=== PATIENT | male | born 1955 | race Caucasian/White ===

== ENCOUNTER 2019-03-24 15:33 | Emergency (ER) | payer OTHER, SELFPAY ==
[2019-03-24 15:33] VITALS: BP 147/85; PULSE 102; RESP 16; TEMP 36.6; O2SAT 98; BMI 28.0
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
--- NOTE | 2019-03-24 19:20 | RAD_ITS ---
STUDY: X-RAY - LEFT HAND REASON FOR EXAM: Male, 63 years old. Post reduction TECHNIQUE: 2 view(s) of the hand. COMPARISON: X-Ray Hand earlier the same day FINDINGS: There has been interval reduction of the fifth metacarpal fracture. There is improved alignment with mild displacement present. No foreign body is present. Cast material limits detail. RAD/Hand 2 Views IMPRESSION: Interval reduction of fifth metacarpal fracture. Electronically Signed: Taye Alan, at 19:52 EDT Tel , Service support ,
[2019-03-24 19:41] VITALS: RESP 16
== END 2019-03-24 19:42 | disposition home or self-care (01) ==
PROVIDERS: Emergency Provider Emergency Medicine
DX: S62.307A Unspecified fracture of fifth metacarpal bone, left hand, initial encounter for closed fracture (principal); S80.12XA Contusion of left lower leg, initial encounter; S30.0XXA Contusion of lower back and pelvis, initial encounter; V29.40XA Motorcycle driver injured in collision with unspecified motor vehicles in traffic accident, initial encounter; Y93.9 Activity, unspecified; Y92.9 Unspecified place or not applicable
CPT/HCPCS: 26605; 73120; 73130; 73562; 99282

== ENCOUNTER 2019-03-30 08:01 | Day surgery (SDC) | payer OTHER, SELFPAY ==
[2019-03-30] VITALS (8 sets, daily range): BP systolic 65–142; BP diastolic 54–90; PULSE 42–81; RESP 16; TEMP 36.1–36.8; O2SAT 95–100; BMI 27.3
[2019-03-30] MEDS: Cefazolin 2 GM in 0.9% Normal Saline 100 ML IV (09:52)
--- NOTE | 2019-03-30 10:00 | RAD_ITS ---
STUDY: X-RAY - LEFT HAND REASON FOR EXAM: Male, 63 years old. Fracture TECHNIQUE: 2 spot view(s) of the hand. Fluoroscopy utilized for 53.2 seconds. COMPARISON: March 24, 2019 FINDINGS: Intraoperative fluoroscopy utilized during placement of pins of fifth metacarpal fracture. RAD/Hand 2 Views IMPRESSION: Intraoperative fluoroscopy. Electronically Signed: Tristan Gonzalez MD at 19:32 EDT , Service support ,
--- NOTE | 2019-03-30 11:00 | PCM.OPRPT ---
Report of Operation Date of Procedure: 03/30/19 Pre-Operative Diagnosis: Displaced malrotated fifth metacarpal neck fracture Post-Operative Diagnosis: Displaced malrotated fifth metacarpal neck fracture Surgery/Procedure Performed:: Closed reduction percutaneous pinning fifth metacarpal fracture neck Description of Surgical Findings:: 2 62 K wires were placed. Stable reduction. research assistant member: None Type of Anesthesia:: General Anesthesiologist: Azael Francis Special Medications: 2 g Ancef Estimated Blood Loss (mL): 3 Fluids Replaced: 700 mL crystalloid Description of Procedure: On the day of the procedure patient's left hand was marked in the preoperative area. Patient was taken back to the operating room where he was transferred to the table in the supine position. Anesthesia assumed control C-spine airway and remained controlled throughout the remainder the procedure. All bony prominences were identified well-padded. Tourniquet was placed in the left upper extremity. Left upper extremity was then prepped in sterile fashion with surgeon scrubbed. Upon reentering the room the left upper chimney was draped in a standard repeat fashion. Timeout was called 1. On the side, site, the procedure to be performed, patient identity and antibiotic given. After the timeout was called one 6.2 K wire was loaded up. We manipulated the hand with traction and internal rotation to help correct the malrotation. Under live x-ray we could see that we were able to reduce the fracture further. The initial K wire was placed quad cortically through the fifth and fourth metacarpals. We then made a small incision with 15 blade scalpel and placed a second K wire in a divergent fashion again quad cortically. Live x-ray was used to verify final fracture reduction and placement of pins. Once we are happy with this the wound was irrigated. Xeroform dressing was placed. Well-padded ulnar gutter splint was placed. Patient was awakened by anesthesia and transferred to the PACU for recovery. Postoperative plan: Patient will have splint removed in 2 weeks and check the wound. He can start pin care at that time and range of motion of his digits. At 4 weeks we will remove the pins. He will be nonweightbearing for a total of 6 weeks. Grafts/Implants Used: two K wires - Complications No intraoperative complications - Admit VTE Documentation VTE Present on Admission: No VTE Mechan Device Prophylaxis: SCD's VTE Pharm Prophylaxis ordered?: No Reason prophylaxis not ordered:: Treatment Not Indicated
== END 2019-03-30 12:30 | disposition home or self-care (01) ==
LOC: SDC 08:02 → AC 08:08
PROVIDERS: Referring Provider Specialist; Visit Provider Specialist
PROC: (CPT 26608; principal; 2019-03-30 10:00)
DX: S62.337A Displaced fracture of neck of fifth metacarpal bone, left hand, initial encounter for closed fracture (principal); V29.60XA Unspecified motorcycle rider injured in collision with unspecified motor vehicles in traffic accident, initial encounter; Y93.9 Activity, unspecified; Y92.9 Unspecified place or not applicable; E78.00 Pure hypercholesterolemia, unspecified; E66.3 Overweight; Z68.27 Body mass index [BMI] 27.0-27.9, adult; Z87.891 Personal history of nicotine dependence
CPT/HCPCS: 26608; 73120; 76000; C1713; J7120; J2405

== ENCOUNTER 2022-07-31 01:45 | Inpatient (IN) | payer MEDICARE, OTHER, SELFPAY ==
[2022-07-31] VITALS (32 sets, daily range): BP systolic 76–130; BP diastolic 53–82; PULSE 49–82; RESP 14–20; TEMP 36.2–36.9; O2SAT 89–99; BMI 27.4
--- NOTE | 2022-07-31 01:45 | RAD_ITS ---
STUDY: X-RAY CHEST REASON FOR EXAM: Male, 66 years old. CP, STEMI TECHNIQUE: 55. COMPARISON: None. FINDINGS: No focal infiltrates or effusions. No pneumothorax. business account specialist overlies the upper chest in the midline. Normal size heart. Normal mediastinum and madai. Normal visualized pulmonary arteries. Normal visualized aortic arch and descending thoracic aorta. Normal visualized thoracic spine. Normal visualized ribs, clavicles, and shoulders. There is no demonstrated abnormality of the visualized soft tissue structures of the upper abdomen. RAD/Chest 1 View (Portable) IMPRESSION: No acute cardiopulmonary disease. Electronically Signed: Shaji Banuelos MD at 2:46 EDT Reading Location ID and State: [id number] / , Service support ,
--- NOTE | 2022-07-31 03:43 | PCM.CONS.C ---
Assessment & Plan Assessment/Plan (1) STEMI (ST elevation myocardial infarction): PLAN: Emergent coronary angiography with possible revascularization was recommended. After obtaining informed consent, procedure was undertaken. 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 Successful aspiration thrombectomy followed by drug-eluting stent was performed using or serial 4.0 x 26 mm stent. This was postdilated using a 4.5 mm balloon. Excellent results were noted. Continue aspirin lifelong. Clopidogrel treatment for at least 1 year. Start on statins. Low-dose beta-blockers. (2) Shock, cardiogenic: PLAN: Requiring low-dose dopamine. Wean off as tolerated. LVEF estimated to be around 50 to 55%. HPI Consult Data Date of Consult: 07/31/22 HPI Narrative HPI Narrative: Patient denies significant past medical history. He woke up from sleep early this morning with anterior chest discomfort radiating to his neck. EMS was called. An EKG done in the field showed changes consistent with acute inferior myocardial infarction. Subsequently a STEMI alert was called. [facility] Allergy/AdvReac Type Severity Reaction Status Date / Time bee venom protein (honey bee) AdvReac Swelling Verified 03/30/19 08:24 Social History Smoking Status: Former smoker Physical Exam Narrative Comfortable. No apparent distress. Respirations unlabored. Heart rate regular rate and rhythm. Abdomen soft. Alert oriented x3. No ankle edema. Risk Stratification Risk Stratification Applicable: No Cardiology Labs/Tests Rhythm: EKG: ECHO: Stress Test: Cardiac Cath: PCI: CT Surgery: Holter monitor: EPS: PPM: CXR: Chest CT Scan: Radiography Diagnostic Testing: Radiology Impression Chest X-Ray 07/31/22 01:45 IMPRESSION: No acute cardiopulmonary disease. Electronically Signed: Shaji Banuelos MD at 2:46 EDT Reading Location ID and State: [id number] / , Service support ,
--- NOTE | 2022-07-31 03:45 | NURSING ---
Report received from cathlab RN Brice, pt was started on Dopamine to maintain BP and HR s/p PCI on order of .
--- NOTE | 2022-07-31 04:00 | NURSING ---
Pt arrived from cathlab, ST elevation remains present on telemetry in lead II, per cathlab RN Brice, is aware.
--- NOTE | 2022-07-31 04:10 | NURSING ---
Pt received w/dopamine at 2mcg/kg/min and Integrilin at 13.1ml/hr infusing together through [facility] PIV.
[2022-07-31 06:42] LABS: ALB/GLOB Ratio 1.1 RATIO (0.9-2.4); AST(SGOT) 181 U/L (15-37); Alanine Aminotransfer ALT/SGPT 106 U/L (16-61); Albumin, Serum 3.4 g/dL (3.2-5.0); Alkaline Phosphatase 44 U/L (45-117); Anion Gap 8 (5-15); BUN 25 mg/dL (7-18); BUN/Creat Ratio 22.7 RATIO (10-20); Bilirubin, Direct 0.08 mg/dL (0.00-0.30); Calcium,Total 8.3 mg/dL (8.5-10.1); Chloride 109 mmol/L (98-107); EST Glomerular Filtration Rate 71 mL/min (>60); Est Glom Filt Rate - Afr Amer 85 mL/min (>60); Estimated Creatinine Clearance 62.18 ml/min; Glucose 181 mg/dL (74-106); Magnesium 2.2 mg/dL (1.6-2.6); Phosphorus 3.4 mg/dL (2.5-4.9); Potassium 4.1 mmol/L (3.5-5.1); Protein, Total 6.4 g/dL (6.4-8.2); Sodium Level 140 mmol/L (136-145); Thyroid Stim Hormone (TSH) 1.06 uIU/mL (0.358-3.74)
[2022-07-31] MEDS: 0.9% Normal Saline 1,000 ML 150 ML IV (06:49)
[2022-07-31] MEDS: 0.9% NaCl Peripheral Flush Adult/Peds IV ×2 (06:51→21:12)
[2022-07-31 07:00] LABS: Cholesterol 287 mg/dL (200); High Density Lipoprotein 73 mg/dL; Triglycerides 68 mg/dL; Very Low Density Lipoprotein 14 mg/dL (5-40)
[2022-07-31 07:03] LABS: Absolute Lymphocyte Count 1.32 X10^3/uL (0.83-4.51); Absolute Neutrophil Count 8.8 X10^3/uL (2.0-7.7); Basophil# 0.03 X10^3/uL; Basophil% 0.3 % (0-1); Eosinophil# 0.04 X10^3/uL; Eosinophils% 0.4 % (0-5); Hematocrit 42.2 % (40-54); Hemoglobin 13.3 g/dL (13.0-16.5); Lymphocyte # 1.32 X10^3/ul (0.83-4.51); Lymphocyte % 12.4 % (19-41); Mean Corp Hgb Conc 31.5 g/dL (32-36); Mean Corpuscular Hgb 27.4 pg (27.0-32.0); Mean Corpuscular Volume 86.8 fL (80-94); Mean Platelet Vol. 9.9 fl (6.2-12.0); Monocyte# 0.47 X10^3/uL; Monocyte% 4.4 % (0-10); NRBC Flagged by Analyzer 0 % (0-5); Neutrophil # 8.77 X10^3/uL (2.7-7.7); Platelet Count 271 K/mm3 (150-450); RBC Distribution Width CV 15.1 % (11.6-14.6); RBC Distribution Width SD 48.1 fl (35.1-43.9); Red Blood Count 4.86 M/mm3 (4.6-6.2); White Blood Count 10.7 K/mm3 (4.4-11.0)
[2022-07-31 07:29] LABS: Partial Thromboplast Time 25.7 Seconds (24.1-36.2); Prothrombin Time (Protime)PT. 12.6 SECONDS (11.7-14.9)
[2022-07-31 07:32] LABS: Absolute Lymphocyte Count 2.76 X10^3/uL (0.83-4.51); Absolute Neutrophil Count 3.7 X10^3/uL (2.0-7.7); Basophil# 0.04 X10^3/uL; Basophil% 0.5 % (0-1); Eosinophil# 0.26 X10^3/uL; Eosinophils% 3.5 % (0-5); Hematocrit 46.1 % (40-54); Hemoglobin 14.3 g/dL (13.0-16.5); Lymphocyte # 2.76 X10^3/ul (0.83-4.51); Lymphocyte % 37.2 % (19-41); Mean Corpuscular Hgb 26.4 pg (27.0-32.0); Mean Corpuscular Volume 85.1 fL (80-94); Mean Platelet Vol. 9.6 fl (6.2-12.0); Monocyte# 0.59 X10^3/uL; NRBC Flagged by Analyzer 0 % (0-5); Neutrophil # 3.74 X10^3/uL (2.7-7.7); Neutrophil % 50.4 % (47-70); Platelet Count 274 K/mm3 (150-450); RBC Distribution Width CV 15.3 % (11.6-14.6); RBC Distribution Width SD 47.5 fl (35.1-43.9); Red Blood Count 5.42 M/mm3 (4.6-6.2); White Blood Count 7.4 K/mm3 (4.4-11.0)
--- NOTE | 2022-07-31 07:37 | PCM.PN.HOSP ---
Subjective Subjective DOS: 07/31/2022 CC: Nausea Reports feeling much better than he was but not quite ready to run a marathon though denies any chest pain or shortness of breath. Was nauseous for the last several hours but has now tolerated ice chips and medicine. Denies any other concerns at this time Objective Data Objective Data Vital Signs: Vital Signs Temp Pulse Resp BP Pulse Ox O2 Del Method O2 Flow Rate 97.2 F L 65 20 H 105/69 96 Nasal Cannula 2 07/31/22 04:00 07/31/22 07:00 07/31/22 07:00 07/31/22 07:00 07/31/22 07:00 07/31/22 07:00 07/31/22 07:00 Oxygen Flow Rate (L/min) 2 Oxygen Delivery Method Nasal Cannula Weight: 81.9 kg Body Mass Index (BMI) 27.4 Lab / Micro Data Result Diagrams: 07/31/22 05:35 07/31/22 05:35 Labs: Laboratory Results - last 24 hr 07/31/22 02:00: WBC 7.4, RBC 5.42, Hgb 14.3, Hct 46.1, MCV 85.1, MCH 26.4 L, MCHC 31.0 L, RDW Std Deviation 47.5 H, RDW Coeff of Kaur 15.3 H, Plt Count 274, MPV 9.6, Immature Gran % (Auto) 0.400, Neut % (Auto) 50.4, Lymph % (Auto) 37.2, Titus % (Auto) 8.0, Eos % (Auto) 3.5, Baso % (Auto) 0.5, Absolute Neuts (auto) 3.7, Absolute Lymphs (auto) 2.76, Nucleated RBC % 0 07/31/22 02:00: PT 12.6, INR 1.0, APTT 25.7 07/31/22 05:35: WBC 10.7, RBC 4.86, Hgb 13.3, Hct 42.2, MCV 86.8, MCH 27.4, MCHC 31.5 L, RDW Std Deviation 48.1 H, RDW Coeff of Kaur 15.1 H, Plt Count 271, MPV 9.9, Immature Gran % (Auto) 0.500, Neut % (Auto) 82.0 H, Lymph % (Auto) 12.4 L, Titus % (Auto) 4.4, Eos % (Auto) 0.4, Baso % (Auto) 0.3, Absolute Neuts (auto) 8.8 H, Absolute Lymphs (auto) 1.32, Nucleated RBC % 0 07/31/22 05:35: Sodium 140, Potassium 4.1, Chloride 109 H, Carbon Dioxide 23.0, Anion Gap 8, BUN 25 H, Creatinine 1.10, Estim Creat Clear Calc 62.18, Est GFR (MDRD) Af Amer 85, Est GFR (MDRD) Non-Af 71, BUN/Creatinine Ratio 22.7 H, Glucose 181 H, Calcium 8.3 L, Phosphorus 3.4, Magnesium 2.2, Total Bilirubin 0.30, Direct Bilirubin 0.08, AST 181 H, ALT 106 H, Alkaline Phosphatase 44 L, Total Protein 6.4, Albumin 3.4, Globulin 3.0, Albumin/Globulin Ratio 1.1, Triglycerides 68, Cholesterol 287 H, LDL Cholesterol 200 H, VLDL Cholesterol 14, HDL Cholesterol 73, TSH 1.06 Radiography Diagnostic Testing: Radiology Impression Chest X-Ray 07/31/22 01:45 IMPRESSION: No acute cardiopulmonary disease. Electronically Signed: Shaji Banuelos MD at 2:46 EDT Reading Location ID and State: [id number] / , Service support , Physical Exam Const alert and no apparent distress Constitutional Narrative: Oriented HEENT normocephalic and head/scalp atraumatic Eyes Eyes Narrative: EOM grossly intact, anicteric Neck supple Resp normal respiratory effort and clear to auscultation bilaterally Cardio regular rate and regular rhythm GI soft to palpation, non-tender and non-distended Extremity Extremity Narrative: No edema appreciated Neuro moves all extremities Neuro Narrative: No overt focal deficits appreciated Psych Psych Narrative: Cooperative Assessment & Plan Assessment/Plan (1) STEMI (ST elevation myocardial infarction): PLAN: Plan Mr. Landeros is a 66-year-old male with no notable past medical history who presented to the [facility] ED on 07/31/2022 with a STEMI. He had awoken with jaw pain and began to have chest pressure and heaviness. EMS was called and on arrival he was found to have an inferior STEMI. Was given 481 mg aspirins and a bolus of heparin prior to arrival. Was still having chest pain upon arrival and was taken emergently to [facility]. #ST elevation MT Admitted to ICU Taken to [facility] emergently?subtotal occlusion of RCA in its proximal part with RICKEY I flow. Successful aspiration thrombectomy followed by ROSARIO was performed with post dilation using balloon Has elevated LDL and cholesterol High intensity statin, aspirin Aspirin lifelong, clopidogrel for at least 1 year Cardiology following Additionally started on low-dose beta-bong and YUDITH inhibitor by cardiology #Elevated transaminases Likely secondary to low BP when he presented, will trend #DVT ppx: Ignacio Phelps MD Charges/Coding Visit Charges Inpatient E&M: 94881 Subs Hosp L2
[2022-07-31 07:42] LABS: BUN 23 mg/dL (7-18); BUN/Creat Ratio 18.1 RATIO (10-20); Calcium,Total 8.9 mg/dL (8.5-10.1); Creatinine, Serum 1.27 mg/dL (0.70-1.30); EST Glomerular Filtration Rate 60 mL/min (>60); Est Glom Filt Rate - Afr Amer 73 mL/min (>60); Estimated Creatinine Clearance 53.86 ml/min; Glucose 173 mg/dL (74-106)
[2022-07-31 07:43] LABS: Anion Gap 7 (5-15); Chloride 106 mmol/L (98-107); Potassium 3.6 mmol/L (3.5-5.1); Sodium Level 140 mmol/L (136-145); Troponin-I HS 17 pg/mL (3.0-78.0)
[2022-07-31 07:45] LABS: BNP,B-Type NATRIURETIC PEPTIDE 11.8 pg/mL (0-100)
--- NOTE | 2022-07-31 08:37 | ED.VIS.CHEST ---
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 He is a former smoker, has not seen a doctor in a long time, takes no medications. He had COVID a couple months ago and has had a chronic cough ever since. EMS sent a prehospital EKG showing a STEMI which was notified prehospital, and as a result they gave heparin 4000 units IV in addition to Brilinta 180 mg and aspirin 324 mg. PFSH PFSH no medical history Allergy/AdvReac Type Severity Reaction Status Date / Time bee venom protein (honey bee) AdvReac Swelling Verified 03/30/19 08:24 Social History Smoking Status: Former smoker ROS ROS ED Constitutional Constitutional ED: Reports malaise and sweats; Denies chills or fever(s) Eyes Eyes: Denies change in vision or diplopia ENT ENT ED: Denies rhinorrhea or sore throat Cardiovascular Cardiovascular: Reports as per HPI, chest pain and radiating jaw, neck or arm pain; Denies palpitations Respiratory/Chest Respiratory/Chest: Reports cough and dyspnea Gastrointestinal Gastrointestinal: Denies abdominal pain, diarrhea, nausea or vomiting Genitourinary Genitourinary ED: Denies dysuria or hematuria Musculoskeletal Musculoskeletal: Denies back pain or neck pain Integumentary Denies abscess or rash Neurologic Neurologic: Denies headache(s), paresthesias or weakness Psychiatric Psychiatric: Denies anxiety or suicidal thoughts EXAM Physical Exam Const Positive well nourished and well developed General Appearance ED: well developed and NAD HEENT Reports moist mucous membranes normocephalic and atraumatic Eyes PERRL and EOMs intact bilaterally Neck full ROM and supple Chest Wall inspection of chest normal and palpation of chest normal Resp normal respiratory effort and clear to auscultation bilaterally Effort and Inspection: able to speak in complete sentences Cardio regular rate, regular rhythm and no murmurs GI non-tender and non-distended Auscultation: normoactive bowel sounds Palpation: soft Back/Spine no CVA tenderness General Back: other FROM Extremity normal to inspection General Extremety ED: Negative for edema, pulses abnormal or tenderness General Extremity: Negative for edema or pulses abnormal Neuro oriented x3, CN's II-XII intact bilaterally and no sensory deficits noted Sensorium / Orientation: awake and alert Motor Exam: strength 5/5 throughout Skin no rashes or lesions noted and no wounds Heart Score History: Highly Suspicious ECG: Significant ST-Depression Age: >/= 65 years Risk Factors: 1 or 2 Risk Factors Troponin: </= Normal Limit Score: 7 MDM MDM MDM Narrative Medical decision making narrative: Repeated EKG upon arrival consistent with inferior STEMI as the prehospital EKGs were. Discussed with Dr. Menchaca, who took the patient to the Power Hammer Operator along with the rest of the team that was called in emergently. Patient stable upon transfer clinically and hemodynamically. Lab Data Attestation: I reviewed the patient's lab results. Labs: Laboratory Results - last 24 hr 07/31/22 07/31/22 07/31/22 01:45 01:45 01:45 WBC Cancelled Corrected WBC Cancelled RBC Cancelled Hgb Cancelled Hct Cancelled MCV Cancelled MCH Cancelled MCHC Cancelled RDW Std Deviation Cancelled RDW Coeff of Kaur Cancelled Plt Count Cancelled MPV Cancelled Immature Gran % (Auto) Cancelled Neut % (Auto) Cancelled Lymph % (Auto) Cancelled [place] % (Auto) Cancelled Eos % (Auto) Cancelled Baso % (Auto) Cancelled Absolute Neuts (auto) Cancelled Absolute Lymphs (auto) Cancelled Total Counted Cancelled Neutrophils % (Manual) Cancelled Band Neutrophils % Cancelled Lymphocytes % (Manual) Cancelled Monocytes % (Manual) Cancelled Eosinophils % (Manual) Cancelled Basophils % (Manual) Cancelled Metamyelocytes % Cancelled Myelocytes % Cancelled Promyelocytes % Cancelled Blast Cells % Cancelled Plasma Cell % (Manual) Cancelled Other Cells % Cancelled Nucleated RBC % Cancelled Nucleated RBCs/100 WBC Cancelled Differential Comment Cancelled Diff Path Review Cancelled Hypersegmented Neuts Cancelled Atypical Lymphocytes Cancelled Reactive Lymphocytes Cancelled Smudge Cells Cancelled Toxic Granulation Cancelled Toxic Vacuolation Cancelled Dohle Bodies Cancelled Nicholas Rods Cancelled Platelet Estimate Cancelled Plt Morphology Comment Cancelled RBC Morphology Cancelled Polychromasia Cancelled Hypochromasia Cancelled Poikilocytosis Cancelled Basophilic Stippling Cancelled Anisocytosis Cancelled Microcytosis Cancelled Macrocytosis Cancelled Spherocytes Cancelled Sickle Cells Cancelled Target Cells Cancelled Tear Drop Cells Cancelled Ovalocytes Cancelled Stomatocytes Cancelled Ramos-[place] Bodies Cancelled [place] Cells Cancelled Bite Cells Cancelled Crenated Cell Cancelled Acanthocytes (Spur) Cancelled Rouleaux Cancelled Schistocytes Cancelled PT Cancelled INR Cancelled APTT Cancelled Sodium 140 Potassium 3.6 Chloride 106 Carbon Dioxide 27.0 Anion Gap 7 BUN 23 H Creatinine 1.27 Estim Creat Clear Calc 53.86 Est GFR (MDRD) Af Amer 73 Est GFR (MDRD) Non-Af 60 BUN/Creatinine Ratio 18.1 Glucose 173 H Calcium 8.9 Troponin I High Sens 17 B-Natriuretic Peptide 07/31/22 07/31/22 07/31/22 01:45 01:45 01:45 WBC 7.4 Corrected WBC RBC 5.42 Hgb 14.3 Hct 46.1 MCV 85.1 MCH 26.4 L MCHC 31.0 L RDW Std Deviation 47.5 H RDW Coeff of Kaur 15.3 H Plt Count 274 MPV 9.6 Immature Gran % (Auto) 0.400 Neut % (Auto) 50.4 Lymph % (Auto) 37.2 [place] % (Auto) 8.0 Eos % (Auto) 3.5 Baso % (Auto) 0.5 Absolute Neuts (auto) 3.7 Absolute Lymphs (auto) 2.76 Total Counted Neutrophils % (Manual) Band Neutrophils % Lymphocytes % (Manual) Monocytes % (Manual) Eosinophils % (Manual) Basophils % (Manual) Metamyelocytes % Myelocytes % Promyelocytes % Blast Cells % Plasma Cell % (Manual) Other Cells % Nucleated RBC % 0 Nucleated RBCs/100 WBC Differential Comment Diff Path Review Hypersegmented Neuts Atypical Lymphocytes Reactive Lymphocytes Smudge Cells Toxic Granulation Toxic Vacuolation Dohle Bodies Nicholas Rods Platelet Estimate Plt Morphology Comment RBC Morphology Polychromasia Hypochromasia Poikilocytosis Basophilic Stippling Anisocytosis Microcytosis Macrocytosis Spherocytes Sickle Cells Target Cells Tear Drop Cells Ovalocytes Stomatocytes Ramos-[place] Bodies Ruth Cells Bite Cells Crenated Cell Acanthocytes (Spur) Rouleaux Schistocytes PT 12.6 INR 1.0 APTT 25.7 Sodium Potassium Chloride Carbon Dioxide Anion Gap BUN Creatinine Estim Creat Clear Calc Est GFR (MDRD) Af Amer Est GFR (MDRD) Non-Af BUN/Creatinine Ratio Glucose Calcium Troponin I High Sens B-Natriuretic Peptide 11.8 Radiography Chest X-Ray - ED: 1 View, Read by ED Physician, No Acute Disease and No Infiltrates Diagnostic Testing: Clinical Impression(s) from Imaging Studies Chest X-Ray 07/31/22 01:45 IMPRESSION: No acute cardiopulmonary disease. Electronically Signed: Shaji Banuelos MD at 2:46 EDT Reading Location ID and State: [id number] / , Service support , Rhythm Strip Rhythm Strip: Sinus Rhythm Rate: 70 Ectopy: None EKG Initial EKG: Attestation: I personally reviewed and interpreted this EKG as follows: Interpretation: Sinus Rhythm, S-T Elevation (inferior) and S-T Depression (laterally) Prior: No Prior Critical Care Time Critical Care Time: Yes Critical care time (excluding procedures): 30-74 minutes (32 min), Including time spent:, Discussing w/Patient &/or Family/Keyboarding Clerk, Discussing w/Consultants, Arranging Admission or Transfer and Performing Direct Patient Care at Bedside Discharge Plan Triage ED Provider: Tristan Lucero Dx/Rx/DC Orders Clinical Impression: Acute ST elevation myocardial infarction (STEMI) of inferior wall Primary Care Provider: Care Physician,No Primary Disposition Disposition: Acute Care Hospital [facility]
[2022-07-31 09:03] LABS: Hemoglobin A1c 6.5 % (3.8-5.6)
--- NOTE | 2022-07-31 10:00 | EKG12_ITS ---
Test Reason : RHYTHM CHANGE Blood Pressure : / mmHG Vent. Rate : 049 BPM Atrial Rate : 047 BPM P-R Int : 000 ms QRS Dur : 068 ms QT Int : 414 ms P-R-T Axes : 000 -19 057 degrees QTc Int : 373 ms Junctional rhythm Inferior-posterior infarct , age undetermined Abnormal ECG When compared with ECG of 31-JUL-2022 05:29, MANUAL COMPARISON REQUIRED, DATA IS UNCONFIRMED Confirmed by BYRON PICKENS, GLENNA ([id number]), city editor VIANNEY BASS ([id number]) on 08/02/2022 7:23:21 AM Referred By: Stephenie Menchaca Confirmed By:GLENNA MATTHEWS MD
[2022-07-31] MEDS: Metoprolol Tartrate 25 MG Tablet 12.5 MG PO (10:03)
[2022-07-31] MEDS: Enoxaparin 40 MG/0.4 ML Syringe SC (10:03)
[2022-07-31] MEDS: Lisinopril 5 MG Tablet PO (10:04)
[2022-07-31] MEDS: Aspirin E.C. 81 MG Tablet PO (10:04)
[2022-07-31] MEDS: Clopidogrel Bisulfate 300 MG Tablet PO (10:04)
--- NOTE | 2022-07-31 10:15 | CASEMGMT ---
RN NYDIA CAD DRAFTSMAN CM to room to meet with patient for initial transition planning/care coordination assessment. ADRIANA STAFFORD introduced self and role at [facility]. Pt voices understanding and consents to assessment at this time. Pt resting in bed in no distress at this time. Sister @ bedside and pt agreeable to her being present during assessment. Pt is A/O at this time and answers all questions appropriately. Care providers, pharmacy, and demographics verified/updated at this time. PCP: No PCP. Pt stated, I don't go to the doctor. Pt did accept list of local PCP's. Specialists: None Preferred Pharmacy: [facility] Insurance: [facility], MMO Prescription Benefit: Yes Living Will/HPOA: Pt states he thinks he has a LW and HPOA, who is his . LNOK: , Jasmyne. Living Arrangements: Lives w/ in 1 1/2 story home. Denies difficulty w/stairs. Independent. Transportation: Pt states drives self and states no transportation concerns at this time. also drives. DME: Denies using any DME and denies needs. HHC/SNF: No hx of either. No needs identified. Pt wishes to return home and states has no concerns with going home at time of discharge. CM to follow for any discharge planning/needs. Pt voices no concerns/needs at this time. Advised pt to ask for CM if any questions/concerns/needs arise. Voices understanding. PLAN: Home Celsa PAZ RN, CM
--- NOTE | 2022-07-31 10:44 | CL.I_ITS ---
Patient Name: TOMASA EMERSON Study Date: 07/31/2022 Performing: Stephenie Menchaca MD Ht: 68 inches 172.72 cm : 1955 Wt: 179.99 lbs 81.64 kg Age: 66 Gender: male BSA: 1.95 PROCEDURE(S) PERFORMED DC01-(86117)LHC/COR/LV IC17-(05896)CORONARY MECHANICAL THROMBECTOMY (ANGIOJET,PENUMBRA) IC16-(98790/[id number])AMI, ROSARIO OR PTCA, ARTERY/GRAFT, SINGLE VESSEL CLINICAL PROFILE AND CO-MORBIDITIES Indications: ACS <= 24 hrs Heart Failure: None CAD Presentations: STEMI. Symptom onset Date/Time: Time Not Available CONCLUSIONS 99% Prox RCA with thrombus burden 60% Mid LAD LVEF 55% Successful Aspiration thrombectomy/PTCA/ROSARIO using Orsirio 4.0x26 mm, post-dilated using 4.5 mm balloon RECOMMENDATIONS ASA Indefinitley Plavix for at least 12 months DESCRIPTION OF PROCEDURE The patient arrived to the procedure lab. The risks and benefits of the procedure as well as a full description of our services here and lack of surgical backup were fully explained to the patient and/or their significant other prior to the catheterization. The Timeout was completed, verifying the correct patient and procedure. The patient's procedural site was prepped and draped in the usual fashion. Local anesthetic was given subcutaneously to right radial region with Lidocaine 2%. Using a modified Seldinger technique, arterial access was obtained via the right radial artery, a 6Fr sheath was inserted.. Right Coronary Artery selective angiography was then performed in multiple views using a 5 Fr. 4.0 Murtaugh catheter. Left Coronary Artery selective angiography was performed in multiple views using a 5 Fr. 4.0 Murtaugh catheter. Left Ventriculography was performed in CORDERO projection using a 5 Fr. Pigtail catheter. LV to AO pullback pressures were then recorded JR4 Guide catheter was inserted and engaged into the RCA. Runthrough Guide wire was advanced to the RCA. Orsiro 4.0 x 26 Drug Eluting stent was inserted. Drug Eluting stent was advanced across the lesion in the right coronary, proximal. Angiogram performed post stent deployment. Angiogram performed post stent deployment. NC Emerge 4.50 x 12 Balloon catheter was inserted. Balloon catheter was advanced across lesion in the right coronary, proximal. Angiogram performed post stent deployment. The arterial sheath was pulled and a TR Band was applied for hemostasis CORONARY ANGIOGRAPHY DOMINANCE: Right Dominant LEFT HEART ASSESSMENT Left Ventricular Ejection Fraction: by LV Gram 55 % LVEDP: 33 mmHg LEFT ANTERIOR DESCENDING ARTERY: LAD: Tubular 60% Mid lesion in LAD RIGHT CORONARY ARTERY: RCA: Complex 99% Proximal lesion in RCA INTERVENTION INFORMATION LESION SITE: RCA (Proximal) Lesion Complexity: High/C, thrombus present: Yes, lesion length: 24 mm, culprit lesion: Yes Pre Stenosis: 99 % Pre intervention RICKEY flow: 1 PROCEDURE: Drug Eluting Stent with post dilatation Post Stenosis: 0 % Post intervention RICKEY flow: 3 Lesion Devices: [employer]umo .014 Runthrough Extra Floppy 180cm straight Cordis 6 Fr JR4 100cm Guide Catheter Penumbra Indigo Penumbra CAT Rx 140cm large lumen Penumbra Penumbra engine canister Biotronik Orsiro [place] MR ROSARIO 4.0x26 Pato Sci NC EMERGE MR 4.50x12 BALLOON COMPLICATIONS No Complications PROCEDURE MEDICATIONS Fentanyl 50 mcg IV Versed 2 mg IV Oxygen: 2 L/min via nasal cannula Atropine 1mg/10ml 0.5 amp 07/31/2022 02:52:18 Atropine 1mg/10ml 0.5 amp 07/31/2022 02:52:18 Adenosine 48 mcg IC 07/31/2022 03:06:34 Adenosine 48 mcg IC @ 07/31/2022 03:08:15 Heparin 6000 unit(s) IV 07/31/2022 02:37:36 Nitro 50 mcg IC 07/31/2022 02:47:46 Verapamil 2.5mg, Ntg 200mcgs, given IA 07/31/2022 02:31:29 IV Bolus: .9 NaCl ml total 07/31/2022 02:51:46 SUMMARY OF HEMODYNAMIC DATA Time AIR REST ECG 02:24:01 AO 99/57 (71) SA 02:34:15 LV 156/2, 33 03:13:36 LV 156/2, 33 03:13:46 LV 121/28, 36 03:15:05 LVp 122/28, 35 03:15:12 AOp 118/75 (92) 03:15:20 Signed By Stephenie Menchaca MD On 07/31/2022 10:43:38 Stephenie Menchaca MD
--- NOTE | 2022-07-31 12:07 | PCM.PN.BLA ---
Progress Note Doing well. No chest pain. No shortness of breath. Continue aspirin. Started on Plavix. For echo today. Hopefully home in the morning if he continues to be stable.
--- NOTE | 2022-07-31 12:08 | ECHOCS_ITS ---
Reason For Study: Chest Pain Procedure This was a 2D Doppler, Color Flow transthoracic echocardiogram. The study was technically difficult. Contrast injection was performed. Exam performed portable in ICU/CCU. Left Ventricle Normal size and thickness. The left ventricular ejection fraction is 40 %. Severe inferior & posterior hypokinesis. Inferior septal hypokinesis. Right Ventricle Severely dilated right ventricle. Moderately severe global right ventricular systolic dysfunction. Atria The left and right atria are normal. Mitral Valve Trivial mitral valve insufficiency. Tricuspid Valve Trivial tricuspid valve insufficiency. Unable to estimate RV systolic pressure due to insufficient tricuspid regurgitant envelope. Aortic Valve Normal aortic valve. Pulmonic Valve The pulmonic valve is not well visualized. Great Vessels Normal sized aortic root. Pericardium/Pleural No pericardial effusion. Medication Diluted definity 2.5ml given slow IV push to enhance endocardial definition. MMode/2D Measurements & Calculations LVIDd: 4.5 cm IVSd: 0.88 cm Ao root diam: 3.9 cm LVIDs: 3.9 cm LVPWd: 1.1 cm LA dimension: 3.5 cm RVDd: 4.1 cm FS: 12.4 % LAV(MOD-sp4): 26.3 ml LA A4 area: 12.7 cm2 RA A4 area: 13.8 cm2 Time Measurements MV dec time: 0.12 sec Doppler Measurements & Calculations MV E max braulio: 59.9 cm/sec Lat Peak E' Braulio: 10.9 cm/sec Med Peak E' Braulio: 7.7 cm/sec MV A max braulio: 69.8 cm/sec E/E' lat: 5.5 E/E' med: 7.8 MV E/A: 0.86 MV V2 max: 81.0 cm/sec MV P1/2t max braulio: 73.3 cm/sec Ao V2 max: 79.2 cm/sec MV max P.6 mmHg MV P1/2t: 46.0 msec Ao max P.5 mmHg MV V2 mean: 33.0 cm/sec MV dec slope: 466.8 cm/sec2 MV mean P.61 mmHg MV V2 VTI: 20.0 cm MVA(P1/2t): 4.8 cm2 LV V1 max: 78.4 cm/sec PA V2 max: 55.0 cm/sec TR max braulio: 200.4 cm/sec LV V1 max P.5 mmHg TR max P.1 mmHg ECHO/Echo Complete W/ Contrast Interpretation Summary The left ventricular ejection fraction is 40 %. Severe inferior & posterior hypokinesis. Inferior septal hypokinesis. Severely dilated right ventricle with moderate to severe RV systolic dysfunctio n. Ordering Physician: Stephenie Menchaca Referring Physician: Stephenie Menchaca Performed By: Phillip Villeda RCS
--- NOTE | 2022-07-31 14:26 | CRPHASE1 ---
Patient Communication Former Patient:: Phase I PHII Cardiac Rehab Discussed with Patient:: Yes Guide to Cardiac Rehab Given to Patient:: Yes Cardiac Rehab Facility Choice List Given to Patient:: Yes Choice Program [facility] PHII:: Communication Given to CR Operator Maintainer:: Stephenie Menchaca Cardiac Rehabilitation Info Cardiac Rehabilitation Program Information: Cardiac Rehabilitation is important for patients like you who are recovering from a heart problem. Cardiac rehabilitation programs are recognized as integral to the continued care of the patient with coronary heart disease. The cardiac rehabilitation program is designed to optimize a patient's physical, psychological, and social functioning. Health career services representative work in cardiac rehabilitation programs and assist you with getting the treatments you need to get stronger and healthier - like exercise, healthy eating habits, and medications. Cardiac rehabilitation has been show to help people with heart problems live longer and have better life enjoyment than people who do not go to cardiac rehabilitation. Please contact the Cardiac Rehabilitation Program at [facility] at in two weeks if you have not heard from them.
--- NOTE | 2022-07-31 14:29 | CRPH1.INSTRU ---
General Education CAD and cardiac anatomy and function:: Patient communicates acknowledgment Explanation of diagnoses and procedures:: Patient communicates acknowledgment Sign/Symptoms of MT:: Patient communicates acknowledgment Antiplatelet therapy: Patient communicates acknowledgment Proper use of NTG-SL: Patient communicates acknowledgment Emergency procedures and activation of EMS: Patient communicates acknowledgment Compliance of all prescribed medications: Patient communicates acknowledgment Smoking Patient Nicotine/Smoking Risk Factors Are:: Non-smoker Recommendations Include:: Previous smoker; encourage continued cessation Nicotine/Smoking Response Code:: Patient communicates acknowledgment Dyslipidemia Patient Dyslipidemia Risk Factors Are:: Total Cholesterol Recommendations Include:: Lipid profile provided, Therapeutic Lifestyle Change dietary guidelines Dyslipidemia Response Code:: Patient communicates acknowledgment Overweight/Obesity Patient Overweight/Obesity Risk Factors Are:: BMI Normal [24-29 & > 65 years old] Recommendations Include:: Exercise 5-7 times/week Overweight/Obesity:: Patient communicates acknowledgment Hypertension Patient Hypertension Risk Factors Are:: No documented hx of HTN Recommendations Include:: Maintain BP <130/85, Moderation of ETOH Hypertension:: Patient communicates acknowledgment Heart Disease Patient Heart Disease Risk Factors Are:: Previous cardiac event Recommendations Include:: Educated family members of their risk Heart Disease Response Code:: Patient communicates acknowledgment Diabetes Patient Diabetes Risk Factors Are:: No documented hx of diabetes Recommendations Include:: Maintain fasting blood sugars 70-110 md/dL, Maintain HgbA1c of 6% or less, Decrease/maintain body weight Diabetes:: Patient communicates acknowledgment Sedentary Recommendations Include:: Benefits of regular exercise Sedentary Response Code:: Patient communicates acknowledgment Stress Patient Stress Risk Factors Are:: Patient denies stress as a risk factor Recommendations Include:: Identification of stressors, and assessment of coping skills, Stress management techniques Stress Response Code:: Patient communicates acknowledgment
[2022-07-31] MEDS: Atorvastatin Calcium 40 MG Tablet PO (20:53)
[2022-07-31] MEDS: Ondansetron 4 MG/2 ML Vial IV (21:12)
--- NOTE | 2022-07-31 21:42 | NURSING ---
Pt called and said he wasn't feeling right, c/o shortness of breath and lightheadedness. Denies any chest pain. HR 40-50s on monitor, appeared to not have P waves. EKG obtained which showed junctional rhythm. BP 70s/50s. Dr. Kitchen notified, and per her request, Dr. Menchaca notified as well. Dopamine order placed.
[2022-07-31] MEDS: DOPamine IV 800 MG/250 ML IV.SOLN. 7.7 MG CONT INF (22:00)
[2022-08-01] VITALS (39 sets, daily range): BP systolic 88–134; BP diastolic 54–78; PULSE 53–78; RESP 13–27; TEMP 36.7–37.4; O2SAT 90–99
[2022-08-01 03:46] LABS: Hematocrit 36.3 % (40-54); Hemoglobin 11.8 g/dL (13.0-16.5); Mean Corp Hgb Conc 32.5 g/dL (32-36); Mean Corpuscular Hgb 27.6 pg (27.0-32.0); Mean Platelet Vol. 9.3 fl (6.2-12.0); Platelet Count 199 K/mm3 (150-450); RBC Distribution Width CV 15.7 % (11.6-14.6); RBC Distribution Width SD 48.2 fl (35.1-43.9); Red Blood Count 4.27 M/mm3 (4.6-6.2); White Blood Count 8.5 K/mm3 (4.4-11.0)
[2022-08-01 04:09] LABS: AST(SGOT) 379 U/L (15-37); Alanine Aminotransfer ALT/SGPT 180 U/L (16-61); Albumin, Serum 3.2 g/dL (3.2-5.0); Alkaline Phosphatase 52 U/L (45-117); Anion Gap 6 (5-15); BUN 22 mg/dL (7-18); BUN/Creat Ratio 22.2 RATIO (10-20); Calcium,Total 8.4 mg/dL (8.5-10.1); Chloride 108 mmol/L (98-107); Cholesterol 260 mg/dL (200); Creatinine, Serum 0.99 mg/dL (0.70-1.30); EST Glomerular Filtration Rate 80 mL/min (>60); Est Glom Filt Rate - Afr Amer 96 mL/min (>60); Estimated Creatinine Clearance 69.09 ml/min; Globulin 3.2 g/dL (2.2-4.2); Glucose 163 mg/dL (74-106); High Density Lipoprotein 64 mg/dL; Potassium 4.1 mmol/L (3.5-5.1); Protein, Total 6.4 g/dL (6.4-8.2); Sodium Level 139 mmol/L (136-145); Triglycerides 159 mg/dL; Very Low Density Lipoprotein 32 mg/dL (5-40)
[2022-08-01] MEDS: 0.9% Saline Lock 10 ML Syringe IV (05:27)
[2022-08-01] MEDS: TITRATION PARAMETER CHANGE 1 EACH IV (05:27)
--- NOTE | 2022-08-01 08:53 | PCM.PN.HOSP ---
Subjective Subjective DOS: 08/01/2022 CC: Nausea Overnight became bradycardic with junctional rhythm, was having nausea and shortness of breath. Cardiology menton contacted and he was started back on a dopamine drip and symptoms improved. This morning reports feeling fairly well, no further chest pain or shortness of breath, nausea resolved but he remains on the drip. Did eat well yesterday during the day. Denies other complaints at this time Objective Data Objective Data Vital Signs: Vital Signs Temp Pulse Resp BP Pulse Ox O2 Del Method O2 Flow Rate 98.0 F 59 L 13 94/66 95 Nasal Cannula 2 08/01/22 03:00 08/01/22 07:00 08/01/22 07:00 08/01/22 07:00 08/01/22 07:00 08/01/22 07:00 08/01/22 07:00 Oxygen Flow Rate (L/min) 2 Oxygen Delivery Method Nasal Cannula Weight: 83.5 kg Body Mass Index (BMI) 27.4 Intake & Output: Intake and Output for Last 24 Hours 07/30/22 07/31/22 08/01/22 23:59 23:59 23:59 Intake Total 2134.04 / 2136.92 257.79 / 257.79 Output Total 300 / 300 Balance 1834.04 / 1836.92 257.79 / 257.79 Lab / Micro Data Result Diagrams: 08/01/22 03:40 08/01/22 03:40 Labs: Laboratory Results - last 24 hr 07/31/22 05:35: Hemoglobin A1c 6.5 H 08/01/22 03:40: WBC 8.5, RBC 4.27 L, Hgb 11.8 L, Hct 36.3 L, MCV 85.0, MCH 27.6, MCHC 32.5, RDW Std Deviation 48.2 H, RDW Coeff of Kaur 15.7 H, Plt Count 199, MPV 9.3 08/01/22 03:40: Sodium 139, Potassium 4.1, Chloride 108 H, Carbon Dioxide 25.0, Anion Gap 6, BUN 22 H, Creatinine 0.99, Estim Creat Clear Calc 69.09, Est GFR (MDRD) Af Amer 96, Est GFR (MDRD) Non-Af 80, BUN/Creatinine Ratio 22.2 H, Glucose 163 H, Calcium 8.4 L, Total Bilirubin 0.30, AST 379 H, ALT 180 H, Alkaline Phosphatase 52, Total Protein 6.4, Albumin 3.2, Globulin 3.2, Albumin/Globulin Ratio 1.0, Triglycerides 159, Cholesterol 260 H, LDL Cholesterol 164 H, VLDL Cholesterol 32, HDL Cholesterol 64 Rhythm Strip Rhythm Strip: Sinus Rhythm Rate: 70 Ectopy: None Physical Exam Const alert and no apparent distress Constitutional Narrative: Oriented HEENT normocephalic and head/scalp atraumatic Eyes Eyes Narrative: EOM grossly intact, anicteric Neck supple Resp normal respiratory effort and clear to auscultation bilaterally Cardio regular rate and regular rhythm GI soft to palpation, non-tender and non-distended Extremity Extremity Narrative: No edema appreciated Neuro moves all extremities Neuro Narrative: No overt focal deficits appreciated Psych Psych Narrative: Cooperative Assessment & Plan Assessment/Plan (1) STEMI (ST elevation myocardial infarction): PLAN: Plan Mr. Landeros is a 66-year-old male with no notable past medical history who presented to the [facility] ED on 07/31/2022 with a STEMI. He had awoken with jaw pain and began to have chest pressure and heaviness. EMS was called and on arrival he was found to have an inferior STEMI. Was given 481 mg aspirins and a bolus of heparin prior to arrival. Was still having chest pain upon arrival and was taken emergently to [facility]. #ST elevation [place] Admitted to ICU Taken to [facility] emergently?subtotal occlusion of RCA in its proximal part with RICKEY I flow. Successful aspiration thrombectomy followed by ROSARIO was performed with post dilation using balloon Has elevated LDL and cholesterol High intensity statin, aspirin Aspirin lifelong, clopidogrel for at least 1 year Cardiology following Additionally started on low-dose beta-bong and YUDITH inhibitor by cardiology 08/01/2022: Overnight had nausea and shortness of breath as well as what seemed to be junctional bradycardia. He is back on a dopamine drip. Is not having any symptoms at this time and has not had any chest pain. Cardiology following. #Elevated transaminases Likely secondary to low BP when he presented, will trend 08/01/2022: Continues to worsen, may be due to to hypoperfusion secondary to his low blood pressure but will obtain upper quadrant ultrasound to assess further #DVT ppx: Ignacio Phelps MD Charges/Coding Visit Charges Inpatient E&M: 75782 Subs Hosp L2
--- NOTE | 2022-08-01 08:55 | US_ITS ---
STUDY: ABDOMINAL ULTRASOUND - RIGHT UPPER QUADRANT REASON FOR VISIT: Male, 66 years old Elevated transaminase, worsening TECHNIQUE: Ultrasound evaluation of the right upper quadrant was performed with real-time and static feng-scale imaging. TECHNICAL QUALITY: Adequate. COMPARISON: None. FINDINGS: Liver: The liver measures 15.5 cm. There is increased echogenicity consistent with fatty infiltration. The bile ducts are within normal limits. There is hepatic color flow. The direction of portal flow is hepatopetal. There is no demonstrated mass lesion. Gallbladder: Normal distended gallbladder. The gallbladder wall measures 2.9 mm. There is a negative sonographic Morales''s sign. There is no pericholecystic fluid. There are no gallstones. Common Bile Duct (C.B.D.): The common bile duct measures 2.7 mm. Pancreas: Normal size of the head, body and tail of the pancreas. There is normal echogenicity of the pancreas. There is no demonstrated pancreatic mass or cyst. Right Kidney: Normal size of the right kidney. The right kidney measures 10.9 cm x 4.4 cm x 4.6 cm. Normal renal cortex. The right cortex measures 1.2 cm. There is no demonstrated renal mass or cyst. There is no right hydronephrosis. US/Liver IMPRESSION: Fatty infiltration of the liver. Electronically Signed: Denis De Jesus MD at 12:31 EDT ,
--- NOTE | 2022-08-01 10:00 | EKG12_ITS ---
Test Reason : AM EKG Blood Pressure : / mmHG Vent. Rate : 060 BPM Atrial Rate : 060 BPM P-R Int : 150 ms QRS Dur : 080 ms QT Int : 392 ms P-R-T Axes : 057 -20 005 degrees QTc Int : 392 ms Sinus rhythm with Premature atrial complexes Inferior infarct , possibly acute ACUTE MA / STEMI Consider right ventricular involvement in acute inferior infarct Abnormal ECG When compared with ECG of 31-JUL-2022 20:44, MANUAL COMPARISON REQUIRED, DATA IS UNCONFIRMED Confirmed by BYRON PICKENS, GLENNA ([id number]), supervising editor news reel VIANNEY BASS ([id number]) on 08/02/2022 7:25:13 AM Referred By: Stephenie Menchaca Confirmed By:GLENAN MATTHEWS MD
[2022-08-01] MEDS: Enoxaparin 40 MG/0.4 ML Syringe SC (10:36)
[2022-08-01] MEDS: Aspirin E.C. 81 MG Tablet PO (10:36)
[2022-08-01] MEDS: Clopidogrel Bisulfate 75 MG Tablet PO (10:36)
--- NOTE | 2022-08-01 15:18 | EKG12_ITS ---
Test Reason : CP Blood Pressure : / mmHG Vent. Rate : 063 BPM Atrial Rate : 063 BPM P-R Int : 132 ms QRS Dur : 080 ms QT Int : 388 ms P-R-T Axes : 060 -28 -17 degrees QTc Int : 397 ms Normal sinus rhythm Inferior infarct , possibly acute ACUTE UT / STEMI Abnormal ECG When compared with ECG of 01-AUG-2022 05:30, MANUAL COMPARISON REQUIRED, DATA IS UNCONFIRMED Confirmed by BYRON PICKENS, GLENNA ([id number]), editorial intern VIANNEY BASS ([id number]) on 08/04/2022 1:25:39 PM Referred By: Stephenie Menchaca Confirmed By:GLENNA MATTHEWS MD
[2022-08-01] MEDS: Acetaminophen 325 MG Tablet 650 MG PO (15:26)
[2022-08-01] MEDS: Ondansetron 4 MG/2 ML Vial IV (15:26)
[2022-08-01 17:42] LABS: International Normalized Ratio 1.1; Prothrombin Time (Protime)PT. 13.9 SECONDS (11.7-14.9)
[2022-08-01 17:43] LABS: Partial Thromboplast Time 28.9 Seconds (24.1-36.2)
[2022-08-01] MEDS: HEPARIN/D5w 25,000 UNITS 25,000 UNITS/250 ML IV.SOLN. 12 UNITS CONT INF (18:10)
[2022-08-01] MEDS: Heparin Injection (Vial) 5,000 UNIT/ML VIAL 6000 UNIT IV (18:13)
[2022-08-01] MEDS: oxyCODONE 5 MG Tablet PO (19:44)
[2022-08-01] MEDS: Atorvastatin Calcium 40 MG Tablet PO (21:07)
[2022-08-02] VITALS (25 sets, daily range): BP systolic 94–122; BP diastolic 56–76; PULSE 52–84; RESP 17–30; TEMP 36.8–37.1; O2SAT 90–98
[2022-08-02 01:06] LABS: Partial Thromboplast Time 188.6 Seconds (24.1-36.2)
[2022-08-02] MEDS: DOPamine IV 800 MG/250 ML IV.SOLN. 7.8 MG CONT INF (03:00)
[2022-08-02 04:37] LABS: Absolute Lymphocyte Count 1.05 X10^3/uL (0.83-4.51); Absolute Neutrophil Count 9.3 X10^3/uL (2.0-7.7); Basophil# 0.01 X10^3/uL; Basophil% 0.1 % (0-1); Hematocrit 37.3 % (40-54); Hemoglobin 11.2 g/dL (13.0-16.5); Lymphocyte # 1.05 X10^3/ul (0.83-4.51); Mean Corpuscular Volume 86.5 fL (80-94); Mean Platelet Vol. 9.9 fl (6.2-12.0); Monocyte# 1.16 X10^3/uL; NRBC Flagged by Analyzer 0 % (0-5); Neutrophil # 9.31 X10^3/uL (2.7-7.7); Neutrophil % 80.2 % (47-70); Platelet Count 167 K/mm3 (150-450); RBC Distribution Width CV 15.1 % (11.6-14.6); RBC Distribution Width SD 48.1 fl (35.1-43.9); Red Blood Count 4.31 M/mm3 (4.6-6.2); White Blood Count 11.6 K/mm3 (4.4-11.0)
[2022-08-02 04:59] LABS: BUN 19 mg/dL (7-18); BUN/Creat Ratio 19.3 RATIO (10-20); Creatinine, Serum 0.99 mg/dL (0.70-1.30); EST Glomerular Filtration Rate 80 mL/min (>60); Est Glom Filt Rate - Afr Amer 97 mL/min (>60); Estimated Creatinine Clearance 69.09 ml/min; Glucose 181 mg/dL (74-106); Protein, Total 6.5 g/dL (6.4-8.2)
[2022-08-02 05:00] LABS: ALB/GLOB Ratio 0.9 RATIO (0.9-2.4); AST(SGOT) 209 U/L (15-37); Alanine Aminotransfer ALT/SGPT 156 U/L (16-61); Alkaline Phosphatase 50 U/L (45-117); Anion Gap 8 (5-15); Calcium,Total 8.2 mg/dL (8.5-10.1); Chloride 101 mmol/L (98-107); Globulin 3.5 g/dL (2.2-4.2); Potassium 4.2 mmol/L (3.5-5.1); Sodium Level 133 mmol/L (136-145)
--- NOTE | 2022-08-02 07:41 | PCM.PN.HOSP ---
Subjective Subjective DOS: 08/02/2022 CC: Sometimes feels hard to catch his breath Reports he still does not feel wonderful but is certainly feeling better today. Said that when he takes a deep breath sometimes he will feel almost like his throat hurts. Denies overt shortness of breath but feels that it sometimes hard to take in a deep breath. Denies any pain consistent with the pain he felt on admission. Did have a headache yesterday which resolved with oxycodone and Zofran resolved his nausea. Has not had nausea this morning. Did not eat very well yesterday because of the nausea but will assess how he does with breakfast. Objective Data Objective Data Vital Signs: Vital Signs Temp Pulse Resp BP Pulse Ox O2 Del Method O2 Flow Rate 98.8 F 58 L 26 H 114/64 91 Room Air 2 08/02/22 04:00 08/02/22 07:00 08/02/22 07:00 08/02/22 07:00 08/02/22 07:00 08/02/22 07:00 08/02/22 00:00 Oxygen Flow Rate (L/min) 2 Oxygen Delivery Method Room Air Weight: 84.3 kg Body Mass Index (BMI) 27.4 Intake & Output: Intake and Output for Last 24 Hours 07/31/22 08/01/22 08/02/22 23:59 23:59 23:59 Intake Total 2134.04 / 2136.92 1141.14 / 1148.94 139.94 / 139.94 Output Total 300 / 300 200 / 200 0 / 0 Balance 1834.04 / 1836.92 941.14 / 948.94 139.94 / 139.94 Lab / Micro Data Result Diagrams: 08/02/22 04:30 08/02/22 04:30 Labs: Laboratory Results - last 24 hr 08/01/22 17:20: PT 13.9, INR 1.1, APTT 28.9 08/02/22 00:19: APTT 188.6 H* 08/02/22 04:30: WBC 11.6 H, RBC 4.31 L, Hgb 11.2 L, Hct 37.3 L, MCV 86.5, MCH 26.0 L, MCHC 30.0 L D, RDW Std Deviation 48.1 H, RDW Coeff of Kaur 15.1 H, Plt Count 167, MPV 9.9, Immature Gran % (Auto) 0.700, Neut % (Auto) 80.2 H, Lymph % (Auto) 9.0 L, [place] % (Auto) 10.0, Eos % (Auto) 0.0, Baso % (Auto) 0.1, Absolute Neuts (auto) 9.3 H, Absolute Lymphs (auto) 1.05, Nucleated RBC % 0 08/02/22 04:30: Sodium 133 L, Potassium 4.2, Chloride 101, Carbon Dioxide 24.0, Anion Gap 8, BUN 19 H, Creatinine 0.99, Estim Creat Clear Calc 69.09, Est GFR (MDRD) Af Amer 97, Est GFR (MDRD) Non-Af 80, BUN/Creatinine Ratio 19.3, Glucose 181 H, Calcium 8.2 L, Total Bilirubin 1.40 H, AST 209 H, ALT 156 H, Alkaline Phosphatase 50, Total Protein 6.5, Albumin 3.0 L, Globulin 3.5, Albumin/Globulin Ratio 0.9 Radiography Diagnostic Testing: Radiology Impression Liver Ultrasound 08/01/22 08:55 IMPRESSION: Fatty infiltration of the liver. Electronically Signed: Denis De Jesus MD at 12:31 EDT , Rhythm Strip Rhythm Strip: Sinus Rhythm Rate: 70 Ectopy: None Physical Exam Const alert and no apparent distress Constitutional Narrative: Oriented HEENT normocephalic and head/scalp atraumatic Eyes Eyes Narrative: EOM grossly intact, anicteric Neck supple Resp normal respiratory effort and clear to auscultation bilaterally Cardio regular rate and regular rhythm GI soft to palpation, non-tender and non-distended Extremity Extremity Narrative: No edema appreciated Neuro moves all extremities Neuro Narrative: No overt focal deficits appreciated Psych Psych Narrative: Cooperative Assessment & Plan Assessment/Plan (1) STEMI (ST elevation myocardial infarction): PLAN: Plan Mr. Landeros is a 66-year-old male with no notable past medical history who presented to the [facility] ED on 07/31/2022 with a STEMI. He had awoken with jaw pain and began to have chest pressure and heaviness. EMS was called and on arrival he was found to have an inferior STEMI. Was given 481 mg aspirins and a bolus of heparin prior to arrival. Was still having chest pain upon arrival and was taken emergently to [facility]. #ST elevation [place] Admitted to ICU Taken to [facility] emergently?subtotal occlusion of RCA in its proximal part with RICKEY I flow. Successful aspiration thrombectomy followed by ROSARIO was performed with post dilation using balloon Has elevated LDL and cholesterol High intensity statin, aspirin Aspirin lifelong, clopidogrel for at least 1 year Cardiology following Additionally started on low-dose beta-bong and YUDITH inhibitor by cardiology 08/01/2022: Overnight had nausea and shortness of breath as well as what seemed to be junctional bradycardia. He is back on a dopamine drip. Is not having any symptoms at this time and has not had any chest pain. Cardiology following. 08/02:Has been on room air but O2 sats low 90s with some subjective shortness of breath of unclear etiology. Echo ordered and read is pending. Denies any pain consistent with the pain he felt on admission but does report he feels like his throat will hurt sometimes when he is trying to take a deep breath. Also has left shoulder pain but said its a soreness with movement and feels it is musculoskeletal. EKG this morning no evidence of STEMI, fairly consistent with EKG from yesterday with changes likely consistent with his inferior STEMI on admission. Remains on dopamine drip and heparin drip to be started per cardiology. #Elevated transaminases Likely secondary to low BP when he presented, will trend 08/01/2022: Continues to worsen, may be due to to hypoperfusion secondary to his low blood pressure but will obtain upper quadrant ultrasound to assess further 08/02: Ultrasound with fatty infiltration of the liver. Can follow-up outpatient #DVT ppx: Heparin drip Becca Phelps MD Charges/Coding Visit Charges Inpatient E&M: 20147 Subs Hosp L2
[2022-08-02] MEDS: Aspirin E.C. 81 MG Tablet PO (08:30)
[2022-08-02] MEDS: Clopidogrel Bisulfate 75 MG Tablet PO (09:39)
--- NOTE | 2022-08-02 10:00 | EKG12_ITS ---
Test Reason : POST PCI Blood Pressure : / mmHG Vent. Rate : 070 BPM Atrial Rate : 070 BPM P-R Int : 144 ms QRS Dur : 080 ms QT Int : 374 ms P-R-T Axes : -84 -04 077 degrees QTc Int : 403 ms Unusual P axis, possible ectopic atrial rhythm Inferior-posterior infarct , possibly acute ACUTE ID / STEMI Consider right ventricular involvement in acute inferior infarct Abnormal ECG When compared with ECG of 31-JUL-2022 02:00, MANUAL COMPARISON REQUIRED, DATA IS UNCONFIRMED Confirmed by BYRON PICKENS, GLENNA ([id number]), technical editor VIANNEY BASS ([id number]) on 08/02/2022 7:20:56 AM Referred By: Stephenie Menchaca Confirmed By:GLENNA MATTHEWS MD
--- NOTE | 2022-08-02 10:25 | RAD_ITS ---
INDICATION: Shortness of breath EXAMINATION/TECHNIQUE: X-RAY - XR Chest 1 View COMPARISON: 07/31/2022. FINDINGS: LINES/DEVICES: Telemetry wires overlying the chest. LUNGS: Linear subsegmental atelectasis in the right base new since the last examination. MEDIASTINUM AND CARDIOVASCULAR STRUCTURES: Cardiac silhouette not enlarged. Central airways and mediastinal contour are unremarkable. BONES AND SOFT TISSUES: No demonstrated acute osseous changes. RAD/Chest 1 View (Portable) IMPRESSION: Linear subsegmental atelectasis in the right lung base. Electronically Signed: Ervin Rodriguez MD at 11:00 EDT ,
[2022-08-02 10:28] LABS: Partial Thromboplast Time 54.8 Seconds (24.1-36.2)
[2022-08-02] MEDS: Acetaminophen 325 MG Tablet 650 MG PO (10:36)
--- NOTE | 2022-08-02 13:25 | PN.CARD_ITS ---
Subjective Subjective Seen and evaluated to be at bedside along with the nursing staff No symptoms of chest pain Complaining of left shoulder and back discomfort. Objective Data Vital Signs: Vital Signs Temp Pulse Resp BP Pulse Ox O2 Del Method O2 Flow Rate 98.2 F 57 L 17 109/74 94 Nasal Cannula 2 08/02/22 12:00 08/02/22 13:00 08/02/22 13:00 08/02/22 13:00 08/02/22 13:00 08/02/22 13:00 08/02/22 13:00 Oxygen Flow Rate (L/min) 2 Oxygen Delivery Method Nasal Cannula Weight: 185 lb 13.595 oz Body Mass Index (BMI) 27.4 Intake & Output: Intake and Output for Last 24 Hours 07/31/22 08/01/22 08/02/22 23:59 23:59 23:59 Intake Total 2134.04 / 2136.92 1141.14 / 1148.94 211.84 / 211.84 Output Total 300 / 300 200 / 200 0 / 0 Balance 1834.04 / 1836.92 941.14 / 948.94 211.84 / 211.84 Lab / Micro Data Result Diagrams: 08/03/22 03:14 08/03/22 03:14 Labs: Laboratory Results - last 24 hr 08/01/22 17:20: PT 13.9, INR 1.1, APTT 28.9 08/02/22 00:19: APTT 188.6 H* 08/02/22 04:30: WBC 11.6 H, RBC 4.31 L, Hgb 11.2 L, Hct 37.3 L, MCV 86.5, MCH 26.0 L, MCHC 30.0 L D, RDW Std Deviation 48.1 H, RDW Coeff of Kaur 15.1 H, Plt Count 167, MPV 9.9, Immature Gran % (Auto) 0.700, Neut % (Auto) 80.2 H, Lymph % (Auto) 9.0 L, [place] % (Auto) 10.0, Eos % (Auto) 0.0, Baso % (Auto) 0.1, Absolute Neuts (auto) 9.3 H, Absolute Lymphs (auto) 1.05, Nucleated RBC % 0 08/02/22 04:30: Sodium 133 L, Potassium 4.2, Chloride 101, Carbon Dioxide 24.0, Anion Gap 8, BUN 19 H, Creatinine 0.99, Estim Creat Clear Calc 69.09, Est GFR (MDRD) Af Amer 97, Est GFR (MDRD) Non-Af 80, BUN/Creatinine Ratio 19.3, Glucose 181 H, Calcium 8.2 L, Total Bilirubin 1.40 H, AST 209 H, ALT 156 H, Alkaline Phosphatase 50, Total Protein 6.5, Albumin 3.0 L, Globulin 3.5, Albumin/Globulin Ratio 0.9 08/02/22 09:35: APTT 54.8 H Micro: Microbiology 08/02/22 10:30 Nasal Secretion SARS-CoV-2 Antigen (Rapid) - Final Rhythm Strip Rhythm Strip: Sinus Rhythm Rate: 70 Ectopy: None Cardiology Labs/Tests 08/01/22 17:20: PT 13.9, INR 1.1, APTT 28.9 08/02/22 00:19: APTT 188.6 H* 08/02/22 04:30: WBC 11.6 H, RBC 4.31 L, Hgb 11.2 L, Hct 37.3 L, MCV 86.5, MCH 26.0 L, MCHC 30.0 L D, Plt Count 167, MPV 9.9, Immature Gran % (Auto) 0.700, Neut % (Auto) 80.2 H, Lymph % (Auto) 9.0 L, [place] % (Auto) 10.0, Eos % (Auto) 0.0, Baso % (Auto) 0.1, Absolute Neuts (auto) 9.3 H, Nucleated RBC % 0 08/02/22 04:30: Sodium 133 L, Potassium 4.2, Chloride 101, Carbon Dioxide 24.0, Anion Gap 8, BUN 19 H, Creatinine 0.99, Est GFR (MDRD) Af Amer 97, Est GFR (MDRD) Non-Af 80, BUN/Creatinine Ratio 19.3, Glucose 181 H, Calcium 8.2 L, Total Bilirubin 1.40 H 08/02/22 09:35: APTT 54.8 H Rhythm: EKG: ECHO: Stress Test: Cardiac Cath: PCI: CT Surgery: Holter monitor: EPS: PPM: CXR: Chest CT Scan: Radiography Diagnostic Testing: Radiology Impression Chest X-Ray 08/02/22 10:25 IMPRESSION: Linear subsegmental atelectasis in the right lung base. Electronically Signed: Evrin Rodriguez MD at 11:00 EDT , Physical Exam Narrative Review of the scientific writer showed underlying normal sinus with sinus bradycardia Cardiac examination; S1-S2 regular No systolic or diastolic murmur No pericardial rub Chest examination clear to auscultation bilateral Assessment & Plan Assessment/Plan (1) Atherosclerosis of coronary artery of [place] heart: (2) Acute ST elevation myocardial infarction (STEMI) of inferior wall: PLAN: 66-year-old patient with a STEMI/inferior on July [id number] With successful PCI of the culprit proximal RCA. Post PCI he continues to complain of mild chest discomfort nausea however there were no remarkable change in repeated EKGs and he had junctional bradycardia with sinus bradycardia started on dopamine Remains a stable hemodynamically no evidence of high-grade AV block and his blood pressure is stable on low-dose dopamine. Cardiac care plan; 1. We will continue on the low-dose dopamine 2. We will continue on the dual antiplatelet therapy, with clopidogrel 70 mammogram daily in addition to low-dose atropine. 3. To continue atorvastatin, discontinue beta-bong and YUDITH inhibitor due to hypotension 4. I started the patient on heparin due to recurrent episodes of left shoulder and back discomfort Will continue to monitor in ICU
[2022-08-02] MEDS: oxyCODONE 5 MG Tablet PO (16:00)
[2022-08-02 16:17] LABS: Partial Thromboplast Time 72.6 Seconds (24.1-36.2)
[2022-08-02] MEDS: HEPARIN/D5w 25,000 UNITS 25,000 UNITS/250 ML IV.SOLN. 9 UNITS CONT INF (20:50)
[2022-08-02] MEDS: Atorvastatin Calcium 40 MG Tablet PO (20:51)
[2022-08-03] VITALS (32 sets, daily range): BP systolic 95–121; BP diastolic 52–71; PULSE 47–99; RESP 16–27; TEMP 36.6–37.2; O2SAT 91–98
[2022-08-03] MEDS: 0.9% Saline Lock 10 ML Syringe IV (03:22)
[2022-08-03 03:23] LABS: Absolute Lymphocyte Count 1.34 X10^3/uL (0.83-4.51); Absolute Neutrophil Count 6.8 X10^3/uL (2.0-7.7); Basophil# 0.01 X10^3/uL; Basophil% 0.1 % (0-1); Eosinophil# 0.01 X10^3/uL; Eosinophils% 0.1 % (0-5); Hematocrit 33.6 % (40-54); Hemoglobin 10.8 g/dL (13.0-16.5); Lymphocyte # 1.34 X10^3/ul (0.83-4.51); Lymphocyte % 14.7 % (19-41); Mean Corp Hgb Conc 32.1 g/dL (32-36); Mean Platelet Vol. 9.9 fl (6.2-12.0); Monocyte# 0.93 X10^3/uL; Monocyte% 10.2 % (0-10); NRBC Flagged by Analyzer 0 % (0-5); Neutrophil # 6.79 X10^3/uL (2.7-7.7); Neutrophil % 74.4 % (47-70); Platelet Count 177 K/mm3 (150-450); RBC Distribution Width SD 45.6 fl (35.1-43.9); White Blood Count 9.1 K/mm3 (4.4-11.0)
[2022-08-03] MEDS: Acetaminophen 325 MG Tablet 650 MG PO (03:23)
[2022-08-03 03:32] LABS: Partial Thromboplast Time 49.4 Seconds (24.1-36.2)
[2022-08-03 03:46] LABS: ALB/GLOB Ratio 0.8 RATIO (0.9-2.4); AST(SGOT) 123 U/L (15-37); Alanine Aminotransfer ALT/SGPT 129 U/L (16-61); Albumin, Serum 2.7 g/dL (3.2-5.0); Alkaline Phosphatase 52 U/L (45-117); Anion Gap 6 (5-15); BUN 18 mg/dL (7-18); BUN/Creat Ratio 21.4 RATIO (10-20); Calcium,Total 8.3 mg/dL (8.5-10.1); Chloride 100 mmol/L (98-107); Creatinine, Serum 0.84 mg/dL (0.70-1.30); EST Glomerular Filtration Rate 96 mL/min (>60); Est Glom Filt Rate - Afr Amer 116 mL/min (>60); Estimated Creatinine Clearance 81.43 ml/min; Globulin 3.5 g/dL (2.2-4.2); Glucose 122 mg/dL (74-106); Magnesium 2.3 mg/dL (1.6-2.6); Potassium 4.2 mmol/L (3.5-5.1); Protein, Total 6.2 g/dL (6.4-8.2); Sodium Level 131 mmol/L (136-145)
[2022-08-03] MEDS: Heparin Injection (Vial) 5,000 UNIT/ML VIAL IV ×3 (04:03→18:45)
--- NOTE | 2022-08-03 08:27 | PN.HOSP_ITS ---
Subjective Subjective DOS: 08/03/2022 CC: Follow-up STEMI Reports he is feeling better overall, nausea improving. Still has some left shoulder pain that responds to Tylenol. Breathing improving, denies any overt substernal chest pain. Appetite improving. Remains on dopamine and heparin drips. No other complaints this morning. Denies any edema Objective Data Objective Data Vital Signs: Vital Signs Temp Pulse Resp BP Pulse Ox O2 Del Method O2 Flow Rate 98.9 F 62 22 H 113/71 92 Nasal Cannula 2 08/03/22 04:00 08/03/22 07:04 08/03/22 07:04 08/03/22 07:04 08/03/22 07:04 08/03/22 07:04 08/03/22 07:04 Oxygen Flow Rate (L/min) 2 Oxygen Delivery Method Nasal Cannula Weight: 84.2 kg Body Mass Index (BMI) 27.4 Intake & Output: Intake and Output for Last 24 Hours 08/01/22 08/02/22 08/03/22 23:59 23:59 22:59 Intake Total 1141.14 / 1148.94 380.74 / 477.04 504.22 / 504.22 Output Total 200 / 200 0 / 0 Balance 941.14 / 948.94 380.74 / 477.04 504.22 / 504.22 Lab / Micro Data Result Diagrams: 08/03/22 03:14 08/03/22 03:14 Labs: Laboratory Results - last 24 hr 08/02/22 09:35: APTT 54.8 H 08/02/22 15:55: APTT 72.6 H 08/03/22 03:14: WBC 9.1, RBC 4.00 L, Hgb 10.8 L, Hct 33.6 L, MCV 84.0, MCH 27.0, MCHC 32.1 D, RDW Std Deviation 45.6 H, RDW Coeff of Kaur 15.0 H, Plt Count 177, MPV 9.9, Immature Gran % (Auto) 0.500, Neut % (Auto) 74.4 H, Lymph % (Auto) 14.7 L, [place] % (Auto) 10.2 H, Eos % (Auto) 0.1, Baso % (Auto) 0.1, Absolute Neuts (auto) 6.8, Absolute Lymphs (auto) 1.34, Nucleated RBC % 0 08/03/22 03:14: Sodium 131 L, Potassium 4.2, Chloride 100, Carbon Dioxide 25.0, Anion Gap 6, BUN 18, Creatinine 0.84, Estim Creat Clear Calc 81.43, Est GFR (MDRD) Af Amer 116, Est GFR (MDRD) Non-Af 96, BUN/Creatinine Ratio 21.4 H, Glucose 122 H, Calcium 8.3 L, Magnesium 2.3, Total Bilirubin 0.90, AST 123 H, ALT 129 H, Alkaline Phosphatase 52, Total Protein 6.2 L, Albumin 2.7 L, Globulin 3.5, Albumin/Globulin Ratio 0.8 L 08/03/22 03:14: APTT 49.4 H Micro: Microbiology 08/02/22 10:30 Nasal Secretion SARS-CoV-2 Antigen (Rapid) - Final Radiography Diagnostic Testing: Radiology Impression Chest X-Ray 08/02/22 10:25 IMPRESSION: Linear subsegmental atelectasis in the right lung base. Electronically Signed: Ervin Rodriguez MD at 11:00 EDT , Rhythm Strip Rhythm Strip: Sinus Rhythm Rate: 70 Ectopy: None Physical Exam Const alert and no apparent distress Constitutional Narrative: Oriented HEENT normocephalic and head/scalp atraumatic Eyes Eyes Narrative: EOM grossly intact, anicteric Neck supple Resp normal respiratory effort and clear to auscultation bilaterally Cardio regular rate and regular rhythm GI soft to palpation, non-tender and non-distended Extremity Extremity Narrative: No edema appreciated Neuro moves all extremities Neuro Narrative: No overt focal deficits appreciated Psych Psych Narrative: Cooperative Assessment & Plan Assessment/Plan (1) STEMI (ST elevation myocardial infarction): PLAN: Plan Mr. Landeros is a 66-year-old male with no notable past medical history who presented to the [facility] ED on 07/31/2022 with a STEMI. He had awoken with jaw pain and began to have chest pressure and heaviness. EMS was called and on arrival he was found to have an inferior STEMI. Was given 481 mg aspirins and a bolus of heparin prior to arrival. Was still having chest pain upon arrival and was taken emergently to [facility]. #ST elevation [place] Admitted to ICU Taken to [facility] emergently?subtotal occlusion of RCA in its proximal part with RICKEY I flow. Successful aspiration thrombectomy followed by ROSARIO was performed with post dilation using balloon Has elevated LDL and cholesterol High intensity statin, aspirin Aspirin lifelong, clopidogrel for at least 1 year Cardiology following Additionally started on low-dose beta-bong and YUDITH inhibitor by cardiology 08/01/2022: Overnight had nausea and shortness of breath as well as what seemed to be junctional bradycardia. He is back on a dopamine drip. Is not having any symptoms at this time and has not had any chest pain. Cardiology following. 08/02:Has been on room air but O2 sats low 90s with some subjective shortness of breath of unclear etiology. Echo ordered and read is pending. Denies any pain consistent with the pain he felt on admission but does report he feels like his throat will hurt sometimes when he is trying to take a deep breath. Also has left shoulder pain but said its a soreness with movement and feels it is musculoskeletal. EKG this morning no evidence of STEMI, fairly consistent with EKG from yesterday with changes likely consistent with his inferior STEMI on [place]. Remains on dopamine drip and heparin drip to be started per cardiology. 08/03: Overall feeling better, still on dopamine and heparin drips. Cardiology following. Repeat EKGs have not been suggestive of further ischemia, no evidence of high-grade AV block. Slowly improving. Continue DAPT. Beta- bong and YUDITH inhibitor held due to hypotension. Continue atorvastatin #Hyponatremia Has trended down during admission, unclear etiology Will obtain further hyponatremia work-up #Elevated transaminases Likely secondary to low BP when he presented, will trend 08/01/2022: Continues to worsen, may be due to to hypoperfusion secondary to his low blood pressure but will obtain upper quadrant ultrasound to assess further 08/02: Ultrasound with fatty infiltration of the liver. Can follow-up outpatient #DVT ppx: Heparin drip Becca Phelps MD Charges/Coding Visit Charges Inpatient E&M: 16240 Subs Hosp L2
[2022-08-03] MEDS: Aspirin E.C. 81 MG Tablet PO (09:44)
[2022-08-03] MEDS: DOPamine IV 800 MG/250 ML IV.SOLN. 7.8 MG CONT INF (09:44)
[2022-08-03] MEDS: Clopidogrel Bisulfate 75 MG Tablet PO (09:44)
[2022-08-03 10:26] LABS: Partial Thromboplast Time 44.6 Seconds (24.1-36.2)
[2022-08-03 11:24] LABS: Osmolality, Serum 288 mOsm/KG (280-301)
[2022-08-03 13:58] LABS: Osmolality, Urine 709 mOsm/KG
[2022-08-03 14:10] LABS: Urine Chloride 44 mmol/L (Not Establ.); Urine Sodium 25 mmol/L (Not Establ.)
--- NOTE | 2022-08-03 15:01 | PN.CARD_ITS ---
Subjective Subjective Patient seen and evaluated today at bedside along with the nursing staff Feeling much better Symptoms of left shoulder discomfort resolved Objective Data Vital Signs: Vital Signs Temp Pulse Resp BP Pulse Ox O2 Del Method O2 Flow Rate 98.0 F 57 L 22 H 110/66 94 Room Air 2 08/03/22 12:00 08/03/22 13:00 08/03/22 13:00 08/03/22 13:00 08/03/22 13:00 08/03/22 13:00 08/03/22 08:48 Oxygen Flow Rate (L/min) 2 Oxygen Delivery Method Room Air Weight: 185 lb 10.067 oz Body Mass Index (BMI) 27.4 Intake & Output: Intake and Output for Last 24 Hours 08/01/22 08/02/22 08/03/22 23:59 23:59 22:59 Intake Total 1141.14 / 1148.94 380.74 / 477.04 981.16 / 981.16 Output Total 200 / 200 0 / 0 Balance 941.14 / 948.94 380.74 / 477.04 981.16 / 981.16 Lab / Micro Data Result Diagrams: 08/03/22 03:14 08/03/22 03:14 Labs: Laboratory Results - last 24 hr 08/02/22 15:55: APTT 72.6 H 08/03/22 03:14: WBC 9.1, RBC 4.00 L, Hgb 10.8 L, Hct 33.6 L, MCV 84.0, MCH 27.0, MCHC 32.1 D, RDW Std Deviation 45.6 H, RDW Coeff of Kaur 15.0 H, Plt Count 177, MPV 9.9, Immature Gran % (Auto) 0.500, Neut % (Auto) 74.4 H, Lymph % (Auto) 14.7 L, [place] % (Auto) 10.2 H, Eos % (Auto) 0.1, Baso % (Auto) 0.1, Absolute Neuts (auto) 6.8, Absolute Lymphs (auto) 1.34, Nucleated RBC % 0 08/03/22 03:14: Sodium 131 L, Potassium 4.2, Chloride 100, Carbon Dioxide 25.0, Anion Gap 6, BUN 18, Creatinine 0.84, Estim Creat Clear Calc 81.43, Est GFR (MDRD) Af Amer 116, Est GFR (MDRD) Non-Af 96, BUN/Creatinine Ratio 21.4 H, Gluc ose 122 H, Calcium 8.3 L, Magnesium 2.3, Total Bilirubin 0.90, AST 123 H, ALT 129 H, Alkaline Phosphatase 52, Total Protein 6.2 L, Albumin 2.7 L, Globulin 3.5, Albumin/Globulin Ratio 0.8 L 08/03/22 03:14: APTT 49.4 H 08/03/22 10:00: APTT 44.6 H 08/03/22 10:00: Serum Osmolality 288 08/03/22 13:45: Urine Osmolality 709, Ur Random Sodium 25, Urine Creatinine 163.00, Urine Potassium 37.0, Urine Chloride 44 Rhythm Strip Rhythm Strip: Sinus Rhythm Rate: 70 Ectopy: None Cardiology Labs/Tests 08/02/22 15:55: APTT 72.6 H 08/03/22 03:14: WBC 9.1, RBC 4.00 L, Hgb 10.8 L, Hct 33.6 L, MCV 84.0, MCH 27.0, MCHC 32.1 D, Plt Count 177, MPV 9.9, Immature Gran % (Auto) 0.500, Neut % (Auto) 74.4 H, Lymph % (Auto) 14.7 L, [place] % (Auto) 10.2 H, Eos % (Auto) 0.1, Baso % (Auto) 0.1, Absolute Neuts (auto) 6.8, Nucleated RBC % 0 08/03/22 03:14: Sodium 131 L, Potassium 4.2, Chloride 100, Carbon Dioxide 25.0, Anion Gap 6, BUN 18, Creatinine 0.84, Est GFR (MDRD) Af Amer 116, Est GFR (MDRD) Non-Af 96, BUN/Creatinine Ratio 21.4 H, Glucose 122 H, Calcium 8.3 L, Magnesium 2.3, Total Bilirubin 0.90 08/03/22 03:14: APTT 49.4 H 08/03/22 10:00: APTT 44.6 H 08/03/22 10:00: Serum Osmolality 288 Rhythm: EKG: ECHO: Stress Test: Cardiac Cath: PCI: CT Surgery: Holter monitor: EPS: PPM: CXR: Chest CT Scan: Physical Exam Narrative Review of alarm security or surveillance monitor showed underlying sinus with sinus bradycardia Cardiac examination S1-S2 is regular Chest examination is clear to auscultation bilateral Examination lower extremity pedal pulses palpable. Assessment & Plan Assessment/Plan (1) Atherosclerosis of coronary artery of [place] heart: (2) Acute ST elevation myocardial infarction (STEMI) of inferior wall: PLAN: 66-year-old patient with a STEMI/inferior and cardiogenic shock S/p PCI of the RCA. LV function preserved ejection fraction of around 50-55% Has junctional bradycardia with a hypotension Requiring dopamine and also had recurrent episode of left shoulder discomfort and started on heparin drip Symptoms improved significantly on medical treatment and he remained stable Cardiac care plan recommendations; 1. We will continue on the dual antiplatelet therapy, Plavix 75 mg daily in addition to low-dose aspirin 81 mg due to bradycardia beta-bong has been on hold 2. We will wean off the dopamine 3. We will continue on heparin over the night with the plan of DC tomorrow if he remains stable 4. Patient to be transferred to progressive care unit, echocardiographic evaluation in a.m. 5. Primary director post will follow-up as an outpatient for continuation of cardiac care
--- NOTE | 2022-08-03 15:58 | EKG12_ITS ---
Test Reason : AFIB Blood Pressure : / mmHG Vent. Rate : 058 BPM Atrial Rate : 058 BPM P-R Int : 000 ms QRS Dur : 082 ms QT Int : 404 ms P-R-T Axes : 000 -23 -01 degrees QTc Int : 396 ms Junctional rhythm Inferior infarct (cited on or before 31-JUL-2022) Abnormal ECG When compared with ECG of 02-AUG-2022 05:09, Junctional rhythm has replaced Sinus rhythm Confirmed by BYRON PICKENS, GLENNA ([id number]), videotape editor VIANNEY BASS ([id number]) on 08/06/2022 11:42:25 AM Referred By: Stephenie Menchaca Confirmed By:GLENNA MATTHEWS MD
--- NOTE | 2022-08-03 16:10 | EKG12_ITS ---
Test Reason : AM EKG Blood Pressure : / mmHG Vent. Rate : 058 BPM Atrial Rate : 058 BPM P-R Int : 130 ms QRS Dur : 082 ms QT Int : 422 ms P-R-T Axes : 054 -28 -30 degrees QTc Int : 414 ms Sinus bradycardia Inferior infarct , age undetermined Abnormal ECG When compared with ECG of 01-AUG-2022 15:18, MANUAL COMPARISON REQUIRED, DATA IS UNCONFIRMED Confirmed by BYRON PICKENS, GLENNA ([id number]), medical transcription editor VIANNEY BASS ([id number]) on 08/04/2022 1:23:43 PM Referred By: Stephenie Menchaca Confirmed By:GLENNA MATTHEWS MD
[2022-08-03 18:33] LABS: Partial Thromboplast Time 40.7 Seconds (24.1-36.2)
[2022-08-03] MEDS: HEPARIN/D5w 25,000 UNITS 25,000 UNITS/250 ML IV.SOLN. 13 UNITS CONT INF (18:45)
[2022-08-03] MEDS: Atorvastatin Calcium 40 MG Tablet PO (20:36)
[2022-08-04] VITALS (21 sets, daily range): BP systolic 98–132; BP diastolic 51–96; PULSE 57–80; RESP 15–25; TEMP 36.4–37.1; O2SAT 93–98
[2022-08-04 01:15] LABS: Absolute Lymphocyte Count 1.48 X10^3/uL (0.83-4.51); Absolute Neutrophil Count 5.2 X10^3/uL (2.0-7.7); Basophil# 0.02 X10^3/uL; Basophil% 0.3 % (0-1); Eosinophil# 0.04 X10^3/uL; Eosinophils% 0.5 % (0-5); Hemoglobin 10.5 g/dL (13.0-16.5); Lymphocyte # 1.48 X10^3/ul (0.83-4.51); Lymphocyte % 19.8 % (19-41); Mean Corp Hgb Conc 30.9 g/dL (32-36); Mean Corpuscular Hgb 26.2 pg (27.0-32.0); Mean Corpuscular Volume 84.8 fL (80-94); Mean Platelet Vol. 10.1 fl (6.2-12.0); Monocyte# 0.67 X10^3/uL; NRBC Flagged by Analyzer 0 % (0-5); Neutrophil # 5.23 X10^3/uL (2.7-7.7); Neutrophil % 69.9 % (47-70); Platelet Count 189 K/mm3 (150-450); RBC Distribution Width CV 14.7 % (11.6-14.6); RBC Distribution Width SD 45.8 fl (35.1-43.9); Red Blood Count 4.01 M/mm3 (4.6-6.2); White Blood Count 7.5 K/mm3 (4.4-11.0)
[2022-08-04 01:24] LABS: Partial Thromboplast Time 94.2 Seconds (24.1-36.2)
[2022-08-04 01:42] LABS: ALB/GLOB Ratio 0.7 RATIO (0.9-2.4); AST(SGOT) 67 U/L (15-37); Alanine Aminotransfer ALT/SGPT 101 U/L (16-61); Albumin, Serum 2.4 g/dL (3.2-5.0); Alkaline Phosphatase 51 U/L (45-117); Anion Gap 6 (5-15); BUN 17 mg/dL (7-18); BUN/Creat Ratio 19.7 RATIO (10-20); Calcium,Total 8.2 mg/dL (8.5-10.1); Chloride 102 mmol/L (98-107); Creatinine, Serum 0.86 mg/dL (0.70-1.30); EST Glomerular Filtration Rate 94 mL/min (>60); Est Glom Filt Rate - Afr Amer 113 mL/min (>60); Estimated Creatinine Clearance 79.53 ml/min; Globulin 3.4 g/dL (2.2-4.2); Glucose 109 mg/dL (74-106); Potassium 3.6 mmol/L (3.5-5.1); Protein, Total 5.8 g/dL (6.4-8.2); Sodium Level 135 mmol/L (136-145)
[2022-08-04] MEDS: Aspirin E.C. 81 MG Tablet PO (07:58)
[2022-08-04] MEDS: Clopidogrel Bisulfate 75 MG Tablet PO (07:58)
--- NOTE | 2022-08-04 09:49 | PN.HOSP_ITS ---
Subjective Subjective Follow-up on acute inferior STEMI: Patient was seen and examined. He denied any more chest pain. He stated that h is previous chest pain was resolved with Tylenol. Denied any dizziness or palpitations. Blood pressures have been stable. Objective Data Objective Data Vital Signs: Vital Signs Temp Pulse Resp BP Pulse Ox O2 Del Method O2 Flow Rate 98.8 F 61 23 H 107/67 97 Room Air 2 08/04/22 07:00 08/04/22 07:00 08/04/22 07:00 08/04/22 07:00 08/04/22 07:00 08/04/22 07:00 08/03/22 08:48 Oxygen Flow Rate (L/min) 2 Oxygen Delivery Method Room Air Weight: 84.5 kg Body Mass Index (BMI) 27.4 Intake & Output: Intake and Output for Last 24 Hours 08/03/22 08/03/22 08/04/22 00:59 23:59 23:59 Intake Total 150.5 / 150.5 Output Total Balance 150.5 / 150.5 Lab / Micro Data Result Diagrams: 08/04/22 01:00 08/04/22 01:00 Labs: Laboratory Results - last 24 hr 08/03/22 10:00: APTT 44.6 H 08/03/22 10:00: Serum Osmolality 288 08/03/22 13:45: Urine Osmolality 709, Ur Random Sodium 25, Urine Creatinine 163.00, Urine Potassium 37.0, Urine Chloride 44 08/03/22 18:00: APTT 40.7 H 08/04/22 01:00: WBC 7.5, RBC 4.01 L, Hgb 10.5 L, Hct 34.0 L, MCV 84.8, MCH 26.2 L, MCHC 30.9 L, RDW Std Deviation 45.8 H, RDW Coeff of Kaur 14.7 H, Plt Count 189, MPV 10.1, Immature Gran % (Auto) 0.500, Neut % (Auto) 69.9, Lymph % (Auto) 19.8, [place] % (Auto) 9.0, Eos % (Auto) 0.5, Baso % (Auto) 0.3, Absolute Neuts (auto) 5.2, Absolute Lymphs (auto) 1.48, Nucleated RBC % 0 08/04/22 01:00: Sodium 135 L, Potassium 3.6, Chloride 102, Carbon Dioxide 27.0, Anion Gap 6, BUN 17, Creatinine 0.86, Estim Creat Clear Calc 79.53, Est GFR (MDRD) Af Amer 113, Est GFR (MDRD) Non-Af 94, BUN/Creatinine Ratio 19.7, Glucose 109 H, Calcium 8.2 L, Total Bilirubin 0.40, AST 67 H, ALT 101 H, Alkaline Phosphatase 51, Total Protein 5.8 L, Albumin 2.4 L, Globulin 3.4, Albumin/Globulin Ratio 0.7 L 08/04/22 01:00: APTT 94.2 H* 08/04/22 08:00: APTT 46.0 H Micro: Microbiology 08/02/22 10:30 Nasal Secretion SARS-CoV-2 Antigen (Rapid) - Final Rhythm Strip Rhythm Strip: Sinus Rhythm Rate: 70 Ectopy: None Physical Exam Narrative Physical exam: General: Alert, Oriented x3, Cooperative, No apparent distress HEENT: Atraumatic Oral: Moist Mucosa Neck: Supple Lungs: Clear to auscultation Cardiovascular: HS I+II, regular, no murmurs Abdomen: Bowel Sounds Present, Soft, Non Tender Extremities: No edema Skin: No rashes, No breakdown Neurological: Grossly intact Psych/Mental Status: Appropriate Assessment & Plan Assessment/Plan (1) STEMI (ST elevation myocardial infarction): PLAN: Plan 1. Acute inferior STEMI , status post emergent cardiac cath with stent in the RCA Continue on aspirin, Plavix. Patient is not on beta-bong or YUDITH inhibitor on account of hypotension 2D echo is pending Will continue per cardiology recommendations 2. Shock, likely cardiogenic versus medication side effect Patient was on dobutamine drip for a while; has been off the drip since yester day Continue to monitor blood pressures 3. Hyponatremia, improved to 135, will continue to monitor 4. Elevated transaminases likely secondary to #1 and 2, LFTs much improved Ultrasound of liver shows fatty infiltration We will continue to trend 5. DVT PPx- Heparin SC Charges/Coding Visit Charges Inpatient E&M: 49980 Subs Hosp L2
[2022-08-04] MEDS: Heparin Injection (Vial) 5,000 UNIT/ML VIAL 5000 UNIT SC ×2 (13:55→21:24)
[2022-08-04] MEDS: Atorvastatin Calcium 40 MG Tablet PO (21:23)
[2022-08-05 03:00] VITALS: PULSE 61
[2022-08-05 03:25] VITALS: BP 117/81; PULSE 63; RESP 18; TEMP 36.4; O2SAT 96
[2022-08-05] MEDS: Heparin Injection (Vial) 5,000 UNIT/ML VIAL 5000 UNIT SC (05:29)
[2022-08-05 07:27] VITALS: PULSE 67
[2022-08-05] MEDS: Aspirin E.C. 81 MG Tablet PO (08:14)
--- NOTE | 2022-08-05 09:34 | PN.CARD_ITS ---
Subjective Subjective Ambulating. Denies any complaints. No chest pain. No shortness of breath. No lightheadedness or dizziness. Objective Data Vital Signs: Vital Signs Temp Pulse Resp BP Pulse Ox O2 Del Method O2 Flow Rate 97.6 F L 67 18 117/81 H 96 Room Air 2 08/05/22 03:25 08/05/22 07:27 08/05/22 03:25 08/05/22 03:25 08/05/22 03:25 08/05/22 08:02 08/03/22 08:48 Oxygen Flow Rate (L/min) 2 Oxygen Delivery Method Room Air Weight: 180 lb 12.465 oz Body Mass Index (BMI) 27.4 Intake & Output: Intake and Output for Last 24 Hours 08/03/22 08/04/22 08/05/22 23:59 23:59 23:59 Intake Total 515.75 / 515.75 120 / 120 Balance 515.75 / 515.75 120 / 120 Lab / Micro Data Result Diagrams: 08/04/22 01:00 08/04/22 01:00 Rhythm Strip Rhythm Strip: Sinus Rhythm Rate: 70 Ectopy: None Cardiology Labs/Tests Rhythm: EKG: ECHO: Stress Test: Cardiac Cath: PCI: CT Surgery: Holter monitor: EPS: PPM: CXR: Chest CT Scan: Radiography Diagnostic Testing: Radiology Impression Echocardiogram 07/31/22 12:08 Interpretation Summary The left ventricular ejection fraction is 40 %. Severe inferior & posterior hypokinesis. Inferior septal hypokinesis. Severely dilated right ventricle with moderate to severe RV systolic dysfunction . Ordering Physician: Stephenie Menchaca Referring Physician: Stephenie Menchaca Performed By: Phillip Villeda RCS Physical Exam Narrative Comfortable. No distress. Heart sounds 1 and 2 are normal. No murmurs or rubs are noted. Chest is clear to auscultation bilaterally. Abdomen soft. Alert oriented x3. No ankle edema. Assessment & Plan Assessment/Plan (1) STEMI (ST elevation myocardial infarction): PLAN: Status post percutaneous intervention with drug-eluting stent to the mid right coronary artery. Stable. Asymptomatic. Continue aspirin lifelong. Clopidogrel treatment for at least 1 year. No beta-blockers for now in view of the recent history of severe bradycardia. (2) Bradycardia: PLAN: Resolved. However we will continue to hold beta-blockers at this point in time. (3) Cardiomyopathy: PLAN: Secondary to #1 above. Start lisinopril 2.5 mg once daily. Check basic metabolic panel in 1 week. (4) Dyslipidemia: PLAN: Continue atorvastatin. Recommend repeating SGPT/SGOT in 1 week. PLAN: Plan Okay to discharge home. Follow-up in the office in 2 weeks.
[2022-08-05 09:36] VITALS: BP 138/82; PULSE 63; RESP 16; TEMP 37.2; O2SAT 99
[2022-08-05] MEDS: Lisinopril 2.5 MG Tablet PO (09:42)
[2022-08-05] MEDS: Clopidogrel Bisulfate 75 MG Tablet PO (09:42)
--- NOTE | 2022-08-05 10:01 | PCM.DC.SUM ---
Providers Date of Admission: 07/31/22 Date of Discharge: 08/05/22 Primary Care Physician: Brooke Primary Care Phys Consultations 07/31/22 03:34 Consult: Cardiology Routine Consulting Provider: Stephenie Menchaca Reason for Consult: STEMI EMERGENT Consult: Yes MD Notified: Yes Date Notified: 07/31/22 Time Notified: 03:34 Method of Notification: Verbal Reason For Visit: STEMI Diagnosis Discharge Diagnosis (1) STEMI (ST elevation myocardial infarction): Status: Acute Code(s): I21.3 - ST elevation (STEMI) myocardial infarction of unspecified site (2) Bradycardia: Status: Acute Code(s): R00.1 - Bradycardia, unspecified (3) Cardiomyopathy: Status: Acute Code(s): I42.9 - Cardiomyopathy, unspecified (4) Dyslipidemia: Status: Acute Code(s): E78.5 - Hyperlipidemia, unspecified Plan 1. Acute inferior STEMI , status post emergent cardiac cath with stent in the RCA 2. Shock, likely cardiogenic versus medication side effect 3. Hyponatremia, improved to 135, will continue to monitor 4. Elevated transaminases likely secondary to #1 and 2 Medications at Discharge Home Medications aspirin 81 mg tablet,delayed release 81 mg PO DAILY@0800 30 days #30 tabs 08/04/22 atorvastatin 40 mg tablet 40 mg PO QHS 30 days #30 tabs 08/04/22 clopidogrel 75 mg tablet 75 mg PO DAILY 30 days #30 tabs 08/04/22 nitroglycerin 0.4 mg sublingual tablet 0.4 mg sublingual Q5M PRN Cardiac/Chest Pain 7 days #10 tabs 08/04/22 lisinopril 2.5 mg tablet 2.5 mg PO DAILY 30 days #30 tabs 08/05/22 Hospital Course Procedures 2-D Echocardiogram Summary of Care Provided Minutes Spent on Discharge: 40 Hospital Course: 66-year-old male with no significant past medical history who presented to the hospital after he awoke with jaw pain as well as chest pressure and heaviness. The EMS was called and he was found to have inferior STEMI. He was taken emergently to the cardiac Public Service Administrator and found to have a subtotal occlusion of the proximal RCA. Patient underwent stenting. Patient also had elevated transaminases secondary to hypotension. Postprocedure, patient was started on aspirin, Plavix, statin, beta-harry and JAVIER inhibitor. He became bradycardic with junctional rhythm as well as hypotension. He was put on dobutamine drip. He also complained of chest discomfort as well right shoulder pain. Chest x-ray showed linear subsegmental atelectasis in the right lung base. Liver ultrasound showed fatty infiltration of the liver. He was started on heparin drip overnight. 2D echo showed EF of 40%, severe inferoposterior hypokinesis, inferior and septal hypokinesis. Severely dilated right ventricle, moderate to severe global right ventricular systolic dysfunction. He continued to be stable. He was transferred out of the ICU on 08/04/2022. There were no acute events overnight. He was started on a low-dose lisinopril 2.5 mg daily. He was discharged home to follow-up with the primary care doctor. He will need repeat blood work to check on his renal function within a week. Physical Exam Narrative Physical exam: General: Alert, Oriented x3, Cooperative, No apparent distress HEENT: Atraumatic Oral: Moist Mucosa Neck: Supple Lungs: Clear to auscultation Cardiovascular: HS I+II, regular, no murmurs Abdomen: Bowel Sounds Present, Soft, Non Tender Extremities: No edema Skin: No rashes, No breakdown Neurological: Grossly intact Psych/Mental Status: Appropriate Weight / BMI Weight Weight: 82 kg Body Mass Index (BMI) 27.4 ABG / Lab / Microbiology Data Result Diagrams: 08/04/22 01:00 08/04/22 01:00 Microbiology: Microbiology 08/02/22 10:30 Nasal Secretion SARS-CoV-2 Antigen (Rapid) - Final Radiography Diagnostic Testing: Radiology Impression Echocardiogram 07/31/22 12:08 Interpretation Summary The left ventricular ejection fraction is 40 %. Severe inferior & posterior hypokinesis. Inferior septal hypokinesis. Severely dilated right ventricle with moderate to severe RV systolic dysfunction. Ordering Physician: Stephenie Menchaca Referring Physician: Stephenie Menchaca Performed By: Brodwolf, Phillip, RCS D/C Instructions Discharge Diet: Low fat / Low cholesterol and 2000 mg Sodium Diet Meaningful Use Info Meaningful Use Diagnoses (Choose all that apply): AMI AMI/Post PCI/Angioplasty Aspirin given w/in 24hrs of arrival?: Yes ASA at discharge?: Yes Antiplatelet Therapy at Discharge:: Yes Statins at discharge?: Yes Javier/ARB at discharge?: Yes Beta Harry at discharge?: No Reason Beta Harry not ordered:: Hypotension Done w/ Acute CT measure.: Yes Documented LVEF (%): 40 Discharge Plan Admission Admit Date/Time: 07/31/22 03:30 Primary Reason for Your Visit: Heart attack Attending Provider: Tiera Parrish Primary Care Provider: Care Physician,No Primary Consulting Providers: Perlita Kitchen ; Becca Phelps ; Stephenie Menchaca Instructions Patient Instructions: Heart Attack Dc Additional Instructions / Restrictions: ?You have been started on multiple medications due to your heart attack. -You will take an 81 mg aspirin indefinitely, and Plavix/clopidogrel for at least 1 year. ?You have also been started on atorvastatin. ?Please follow-up with cardiology upon discharge. Please call for hospital follow-up appointment ?You will also follow-up with cardiac rehab upon discharge ?You were found to have the infiltration of your liver during admission, please discuss this with your primary care physician -It is very important that you establish with a primary care physician upon discharge for further coordination of care. If you do not have a primary care physician or are unsure he would like to see, please ask for a list of primary care physicians in the area prior to discharge. -For any concerning signs or symptoms please call 911 or proceed to the nearest emergency department Discharge Orders/Prescriptions Prescriptions: New atorvastatin 40 mg Tablet 40 mg PO QHS 30 Days Qty: 30 0RF clopidogrel 75 mg Tablet 75 mg PO DAILY 30 Days Qty: 30 0RF aspirin 81 mg Tablet,Delayed Release (Dr/Ec) 81 mg PO DAILY@0800 30 Days Qty: 30 1RF nitroglycerin 0.4 mg Tablet, Sublingual 0.4 mg sublingual Q5M PRN (Reason: Cardiac/Chest Pain) 7 Days Qty: 10 0RF lisinopril 2.5 mg Tablet 2.5 mg PO DAILY 30 Days Qty: 30 0RF Referrals / Follow Up: Stephenie Menchaca MD [Med Staff - Active Staff] - Within 2 Weeks Care Physician,No Primary [Primary Care Provider] - Disposition Disposition (needs filled in before D/C Order can be placed): Home, Self Care Charges/Coding Visit Charges Inpatient E&M: 84384 Disch Hosp
--- NOTE | 2022-08-05 10:05 | CASEMGMT ---
Pt has been independent in room and states no concerns with going home at time of discharge. SStyovani WRIGHT CM
--- NOTE | 2022-08-05 10:43 | PHA.DC.MC ---
Pharmacy Service has performed discharge medication reconciliation and counseling for this patient. 1. ASPIRIN 81MG PO DAILY 2. ATORVASTATIN 40MG PO QHS 3. CLOPIDOGREL 75MG PO DAILY 4. NITROGLYCERIN 0.4MG SL Q5M PRN CHEST PAIN 5. LISINOPRIL 2.5MG PO DAILY The patient's discharge medication list was reviewed for discrepancies and discrepancies were resolved. Home Medications aspirin 81 mg tablet,delayed release 81 mg PO DAILY@0800 30 days #30 tabs 08/04/22 atorvastatin 40 mg tablet 40 mg PO QHS 30 days #30 tabs 08/04/22 clopidogrel 75 mg tablet 75 mg PO DAILY 30 days #30 tabs 08/04/22 nitroglycerin 0.4 mg sublingual tablet 0.4 mg sublingual Q5M PRN Cardiac/Chest Pain 7 days #10 tabs 08/04/22 lisinopril 2.5 mg tablet 2.5 mg PO DAILY 30 days #30 tabs 08/05/22 The patient was counseled on the following discharge medications and changes in medications for homegoing were reviewed. The Reason for Use, instructions for use, and potential side effects were reviewed for all new medications. The patient's questions regarding all of their medications were answered. The patient was able to verbally demonstrate an understanding of their discharge medications. Patient counseled by pharmacy technology instructorBella.
[2022-08-05 12:38] VITALS: BP 138/82; PULSE 63; RESP 16; TEMP 37.2; O2SAT 99
== END 2022-08-05 12:00 | disposition home or self-care (01) | DRG 246 ==
LOC: ED 03:21 → ICU 03:36 → ED 03:36 → ICU 06:12 → PCU 08-05 09:52
PROVIDERS: Internal Medicine; Internal Medicine Interventional Cardiology; Admitting Provider Internal Medicine; Emergency Provider Emergency Medicine; Referring Provider Internal Medicine Cardiovascular Disease; Visit Provider Internal Medicine
DX: I21.3 ST elevation (STEMI) myocardial infarction of unspecified site (principal); R57.0 Cardiogenic shock; I42.9 Cardiomyopathy, unspecified; E87.1 Hypo-osmolality and hyponatremia; K76.0 Fatty (change of) liver, not elsewhere classified; E78.00 Pure hypercholesterolemia, unspecified; I25.10 Atherosclerotic heart disease of native coronary artery without angina pectoris; E78.5 Hyperlipidemia, unspecified; R00.1 Bradycardia, unspecified; Z87.891 Personal history of nicotine dependence; R09.02 Hypoxemia; Z79.01 Long term (current) use of anticoagulants; Z79.82 Long term (current) use of aspirin
CPT/HCPCS: 71045; 76705; 80048; 80053; 80061; 82248; 82436; 82570; 83036; 83735; 83880; 83930; 83935; 84100; 84133; 84300; 84443; 84484; 85025; 85027; 85610; 85730; 87426; 92941; 92973; 93005; 93306; 93458; 94762; 97802; 99152; 99153; 99251; 99285; C1757; C1874; J7030; J7040; J7050; Q9957; Q9967; A4216; C1725; C1769; C1887; C1894; C8929; C9606; G0463; J0153; J1327; J2405

== ENCOUNTER 2022-08-13 07:45 | Outpatient (CLI) | payer MEDICARE, OTHER, SELFPAY ==
--- NOTE | 2022-08-13 07:53 | CR.HP_ITS ---
CR - History & Physical - General Arrival date:: 08/13/22 Arrival time:: 07:54 Date of Referral:: 07/31/22 Date of CR Evaluation:: 08/13/22 Referring Physician: Dr. Stephenie Menchaca Primary Diagnosis: PCI w/coronary stenting - History of Present Cardiac Event Onset Date: Enter Onset Date of cardiac illnesses in Comment field below Acute Myocardial Infarction within 12 months:: Yes - ST Elevated Myocardial Infarction 06/20/2022 Coronary Artery Bypass Graft:: No Heart valve replacement or repair:: No PTCA or coronary stenting:: Yes - PCI w/KIRBY on 06/20/2022 Heart or Heart-Lung Transplant:: No Heart Failure EF <35%:: No - Cardiomyopathy w/LVEF 40% Type of Symptoms:: First awakened with jaw pain then started to experience Chest Pain, shortness of breath, Diaphoretic Interventions with present event:: Taken to the chemistry laboratory technician from emergency room Were there any complications?: no - Sleep Disorder Evaluation Hx of Sleep Apnea: No Do you snore loudly (louder than talking or can be heard through closed doors)?: Yes Do you often feel tired/ fatigued/ sleepy during daytime?: No Has anyone observed you stop breathing during sleep?: No History of Hypertension (for STOP score): Yes STOP Results: Positive - Medications Home Medications: Ambulatory Orders Medication Instructions Recorded aspirin 81 mg tablet,delayed 81 mg PO DAILY@0800 30 days #30 08/04/22 release tabs atorvastatin 40 mg tablet 40 mg PO QHS 30 days #30 tabs 08/04/22 clopidogrel 75 mg tablet 75 mg PO DAILY 30 days #30 tabs 08/04/22 nitroglycerin 0.4 mg sublingual 0.4 mg sublingual Q5M PRN 08/04/22 tablet Cardiac/Chest Pain 7 days #10 tabs lisinopril 2.5 mg tablet 2.5 mg PO DAILY 30 days #30 tabs 08/05/22 - Allergies Allergies/Adverse Reactions: Allergies bee venom protein (honey bee) Adverse Reaction (Verified 03/30/19 08:24) Swelling Advanced Directives - Advanced 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 Living Will: Yes Advance Directives Information Provided: No Advance Directives on File: Yes DNR Order?:: No - MOLST See MOLST form: No Past Medical History - Covid-19 Screening Fever: No Unexplained muscle aches: No Current respiratory symptoms: No Upper respiratory infections symptoms: No Gastro-intestinal symptoms: No Pel-Iuud-Rkztck symptoms: No Date of testin08/13/22 - Vaccinated Maurilio & Maurilio, Romia, due for the BOOSTER Had contact w/person w/symptoms or Covid-19 (+) last 14 days: No Has High Risk Exposures ID'd by Health dept/Inf Control team: No 65 years or older:: Yes Lives in Assisted Living facility:: No Has a chronic lung disease or moderate to severe asthma:: No Has a serious heart condition:: No Diabetic:: No Has chronic kidney disease undergoing dialysis:: No Has liver disease:: No - Past Medical Illness Medical History: Past Medical History (Last Updated 08/13/22 @ 08:02 by Les Shah CRT, BLAST SETTER, BS) Atherosclerosis of coronary artery of [place] heart I25.10 Hyperlipidemia E78.5 Hyponatremia E87.1 Left ventricular ejection fraction of 40-49% R94.30 STEMI (ST elevation myocardial infarction) Onset Date: ~06/20/22 I21.3 - Past Surgical History Surgical History: Past Surgical History (Last Updated 08/13/22 @ 08:02 by Les Shah CRT, BLAST SETTER, BS) History of coronary artery stent placement Onset Date: ~07/31/22 Z95.5 Prox RCA-Aspiration thrombectomy/PCI-KIRBY using [employer] [place] MR 4.0x26mm Presence of coronary angioplasty implant and graft Onset Date: ~06/20/22 Z95.5 Social History - Smoking History Smoking Status: Never smoker Hx Tobacco Use: No Hx Smoking Exposure: No - Alcohol Use Alcohol Usage: Yes - Beer periodically, occasionally a shot of [place] - Substance Abuse Hx Substance Use: No - Occupation Occupation (List type of work in comments):: Retired - Hobbies, Recreation, Social Activities Hobbies: Other - Traveling, bee hives, ride motorcycles. Just went on a [place],000 [place] trip [place]. Recreational Activities: I am able to engage in all my recreational activities Social Environment - Status Marital Status: - Current Living Arrangements Living Environment:: Spouse - Children How many children do you have?: 2 Do any of your children live nearby?: No - Safety Do you feel safe in your surroundings?: Yes - Assistance Do you need any assistance at home?: no Review of Systems - Review of Systems Hints: Right click = Denies (Slash). Left click = Reports ([place]) Review of Present Symptoms: Reports: Dizziness/Lightheadedness - very rarely; occasionally if hasn't eaten yet and gets up to quickly., Heart Arrhythmia/Irregularities - Sinus bradycardia, uspecified, Appetite - Normal, Appetite - Special Diet - Try to watch red meats, more vegetables, salads, grains whole.. Denies: Shortness of Breath at Rest, Shortness of Breath with Exertion, Angina, Fatigue - Pain Is Patient Pain Free?: Yes Pain Location: none Pain Level: 0/10 Risk Factor Assessment - Chief Complaint Chief Complaint: PT is a [address]ch[address] who presents to cardiac rehab today following a STEMI and PCI w/Kirby to coronary artery on 06/20/2022. - Vital Signs Temperature: 97.6 F Respiratory Rate: 12 Pulse Ox: 96 Blood Pressure: 117/81 - mechanical measured Nailbeds:: pink - Pulse Pulse Rate: 67 Pulse Rhythm: Regular - Hypertension Blood Pressure Sitting - Left Arm: 117/81 - mechanically measures - Blood Cholesterol/Lipids Total Cholesterol (mg/dL) Goal = less than 200 mg/dL: 260 HDL Cholesterol (mg/dL) Goal = less than 40 mg/dL: 64 LDL Cholesterol (mg/dL) Goal = less than 70 mg/dL: 164 Triglycerides (mg/dL) Goal = less than 150 mg/dL: 159 - Diabetes Nutrition Referral for Diabetes: No - Obesity Height: 5 ft 8 in Weight:: 180 lb Weight in Pounds: 180.0 lbs Weight Source: Stated by Patient Body Mass Index (BMI): 27.3 Nutritional Referral for Obesity: No - Physical Inactivity Physical Inactivity: Reg Exercise 30 min/day, Recreational activity - Risk Stratification Risk Guidelines: Lowest Risk: Risk Factor for Smoking, Risk Factor for Dy slipidemia, Risk Factor for Diabetes, Risk Factor for Obesity, Risk Factor for Hypertension - well controlled w/medications, Risk Factor for Sedentary Lifestyle, Risk Factor for Depression Motivation - Motivation to Participate On a scale of 1 to 10, how prepared are you to commit to attending program?: 9 What do you see as barriers to successfully being able to complete the program?: travel plans, work and pre-planned vacation around the holidays What do you see as the benefits of succesfully completing the program? In other words, what do you hope to get out of participating in the program?: health, confidence to regain activity Are there issues you are dealing with that will interfere with completing the program?: no Do you have a spouse or signficant other, family or friends who will help support you to complete the program?: yes
--- NOTE | 2022-08-13 07:54 | PCM.CR.ITP ---
Diagnosis - General Information Admitting Diagnosis: STEMI, PCI w/ROSARIO to coronary artery on 06/20/2022 Secondary Diagnosis: Dyslipidemia, Hyperlipidemia, Hypertension, cardiomyopathy LVEF 40%, unspecified bradycardia Personal Learning Style:: Audio/Visual, Written Barriers to Learning: Hearing Impairment - hearing aids, Vision Impairment Stage of change r/t lifestyle modifications:: Action Gave educational material for:: Treating Heart Disease, Emotions & Heart Disease, Stress Management & Relaxation, Sleep Disorders & Heart Disease, How The Heart Works, What it means to have Heart Disease, How Coronary Artery Disease is Diagnosed, Heart Procedures, What Heart Medications Do, Risk Factors & Modifications, Living an Active Life, Nutrition - Education/Goals Individual Counseling: Initial Assessment: Abnormal Cholesterol Levels, High Blood Pressure Cardiac Rehabilitation Goals: 1. Maintain the individual as the primary focus of care. 2. To improve the patient's quality of life. 3. Identification of cardiac risk factors and provide cardiac risk factor management. 4. Enhance the psychosocial status of the patient. 5. Reconditioning enough to allow the patient to resume customary activities. 6. Control symptoms of cardiac disease Personal Goals: Initial Assessment: Improve energy level, Get back to work, or to resume activities faster, Improve knowledge of cardiac disease, Improve muscle strength and endurance, Improve diet and eating habits (eat healthier), Control risk factors (learn risk factor modification) Scale for measuring improvement of personal goals: Enter appropriate number in Comments. 2 = Unchanged. 3 = Slightly Better. 4 = Moderate Improvement. 5 = Met my Goal - Diagnosis & Disease Process Outcomes/Goals: Pt IDs own risk factors & lifestyle modifications by Session 10, Verbalizes symptoms of angina & response by session 3., Pt independently manages Plan/Interventions: Assist Pt to ID & engage in lifestyle modification to reduce CVD risk, Instruct on individual risk factors, Review symptoms of angina & emergency actions, Review secondary diagnosis & identify educational needs. - Safety Referral to Physical Therapy: No Referral to [facility] Case Management: No Fall Risk Assessed:: Yes Assistive Devices:: None Exercise - Initial Assessment - Visit Date of Eval: 08/13/22 Session #:: 0 - Pre-cardiac rehab evaluation Mets: Pre-: >7 METS for 30 minutes by discharge - Physician Prescribed Exercise Modalities: Treadmill, Rower, Airdyne Frequency: 3x/week for 12 weeks [36 sessions] Intensity: 60-80% of age predicted maximum heart rate reserve Duration: 30 - 45 minutes METs - Progression 0.5-1.0 weekly:: Current METSs:: 4.0 Target Heart Rate:: 99-129 Resting Blood Pressure: 117/81 - mechanically measured EKG Type: Sinus Bradycardia, unspecified Current Physical Activity or Exercising minutes: Sits < 3 hours daily; physically active - Outcomes & Goals Goals:: Verbalizes understanding of THR, RPE & goal METS by session 6, Documents in home exercise log/reports 30 min aerobic 5 day/wk by DC, Demonstrates accurate pulse taking by DC - Intervention & Plan Exercise Program Goals: Instruct on personal THR & RPE, Instruct on MET level & personal MET goal, Show patient to take own pulse /validate performance until accurate, Instruct on home exercise - Physical Activity Home Exercise Physical Activity - Home Exercise: Safe Exercise, Warm-up, Self-monitoring, Cool-Down, Home Exercise > 30 min Daily, Sitting Time <3 hours/daily - Outcomes & Goals Outcomes/Goals: Demonstrates correct Warm-up/exercise Cool-Down (S3) if = 2.5 METs, Verbalizes symptoms of exercise intolerance by Session 3 (S3), Demonstrate safe equipment use (S3) & follows exercise prescrition (6) - Intervention & Plan Plan/Intervention: Instruct warm-up & cool-down if exercising at > 2 METs, Instruct on symptoms of exercise intolerance & actions to take, Instruct & monitor on saf, Assess intial functional capacity & safety risk Nutrition - Initial Assessment - Program Goals Nutrition Program Goals: LDL <100 optimal. 100 - 129 Near optimal. 130 - 159 Borderline High. 160 - 189 High. Total Cholesterol <200 desirable. 200 - 239 Borderline High. >/= 240 High. HDL < 40 Low >/=60 High. Triglycerides <150 desirable. <199 optimal. VlDL 5 - 40. HgbA1C <7%. BMI <25 Patient has diagnosis of Hyperlipidemia (ICD E78)?: Yes - Visit Date of Assessment:: 08/13/22 Session #:: 0 - Cholesterol/Lipids (Other Core Measures) Triglycerides (mg/dL): 159 Total Cholesterol (mg/dL): 60 LDL Cholesterol (mg/dL): 164 HDL Cholesterol (mg/dL): 64 Lipid Medication: Atorvastatin Determine presence & major risk factors that modify LDL goal: Hypertension or hypertensive medication, Family history of premature CHD in Male < 55 years: female <65 yearsFa, Age men > 45 years; women >/= 55 years Outcomes/Goals: Pt IDs own risk factors & lifestyle modifications by Session 10, Verbalizes symptoms of angina & response by session 3., Pt independently manages Intervention/Plan: Instruct on personal lipid levels & lipid goals/NCEP guidelines, Instruct on cholesterol Referral to dietitian:: Yes - Medical Nutrition Therapy - Diabetes (Other Core Measures) Diabetes Type: Not Applicable - Weight Mgt (Other Care) Not Applicable: Yes Height: 5 ft 7 in Weight:: 180 lb BMI: 28.1 Diagnosis Overweight/Obesity BMI> 30% ICD-10 E66: No Diagnosis High BMI/Morbid Obesity BMI> 35% ICD-10 Z68: No Outcomes/Goals: Pt sets, maintains & shows weight loss goal & trend during rehab Intervention/Plan: Instruct on ideal BMI & set weight loss goal w/patient, Assist pt to ID & incorporate diet changes for weight loss by S9 - Healthy Eating Habits Will attend diet classes:: Yes Outcomes/Goals:: Consume diet rich in vegs,fruits,whole grain/high fiber,fish,lean meat, Limit sat/trans fats,cholesterol & added salts & sugars Intervention/Plan:: Assess current eating habits - Education Gave educational materials for:: Healthy eating Nutrition - 30-Day Assessment Nutrition - 60-Day Assessment Nutrition - 90-Day Assessment Nutrition - Final Assessment Core - Initial Assessment - Visit Date of Eval: 08/13/22 Session #:: 0 - Pre-cardiac rehab evaluation - Medication Compliance Preventative Medication(s):: Aspirin, Clopidogrel/P2Y12 inhibit, Statin/lipid, Beta bong H/O mental health issues: depression, anxiety, or addiction?: No Doesn?t believe in the benefits of treatment?: No Believes medications are unnecessary or harmful?: No Has a concern about medication side effects?: No Expresses concern over the cost of medications?: No Outcomes/Goals: Verbalizes medications,desired effect & common side effects @ DC, Pt self-reports following medication regimen, Keeps card in wallet w/medications listed by DC Interventions/plans: Instruct on medication effects & side effects, Review medication list w/patient every two weeks, Instruct importance of taking meds as ordered & assist problem solving - Tobacco Use Tobacco Use: Non-smoker - Hypertension Hypertension Diagnosis:: Hypertension ICD-10 I10 Resting Blood Pressure:: 117/81 - mechanically measured [place] [employer] Hypertension Guidelines: [place] [employer] Hypertension Guidelines. Normal BP Less than 120/80 Outcomes/Goals: Able to verbalize/achieve optimal blood pressure <130/80, Incorporates diet changes & exercise for blood pressure control by DC Interventions/plan: Instruct on optimal blood pressure, hypertension & medications, Instruct on effects of sodium, alcohol, stress, exercise &hypertension - Tobacco Cessation Referral Smoking Cessation Referral:: No Individual Education/Counseling:: No Education Schedule Given:: Yes Core - 30-Day Assessment Core - 60-Day Assessment Core - 90 Day Assessment Core - Final Assessment Psychosocial - Initial Assess - VIsit Date of Eval: 08/13/22 Session #:: 0 - Pre-cardiac rehab evaluation Not Applicable: Yes History of previous Mental disease:: No - Psychosocial Test Tool Used:: [employer] QOL Cardiac, PHQ-9 Questionnaire phq-9 Severity: Severity. 1-4 Minimal Depression. 5-9 Mild Depression. 10-14 Moderate Depression. 15-19 Moderately Sever Depression. 20-27 Severe Depression. Rule: - Referral to Behavioral Health PS - Interventions: Yes Attend Stress Management Classes, No Referral to Behavioral Health if PHQ-9 score >9:, No Referral to [facility], No Referral to Physician if PHQ-9 if score is 5-9: - Outcomes/Goals: See list Psychosocial Outcomes/Goals:: ID's personal stressors & 2 strategies to manage stress by discharge - Intervention/Plan: See List Interventions/Plan:: Assess stressors,coping strategies & signs of derpression on admission, Instruct/assist pt to develop coping & personal stress Mgt strategies, Instruct patient to recognize signs & symptoms of depression, Instruct patient to recog Psychosocial - 30-Day Assess Psychosocial - 60-Day Assess Psychosocial - 90-Day Assess Psychosocial - Final Assessmen Patient Health Questionnaire Initial Assessment 1. Little interest or pleasure in doing things: Not at all 2. Feeling down, depressed, or hopeless: Not at all 3. Trouble falling or staying asleep, or sleeping too much: Several days 4. Feeling tired or having little energy: Several days 5. Poor appetite or overeating: Several days 6. Feeling bad about yourself -- or that you are a failure or have let yourself or your family down: Not at all 7. Trouble concentrating on things, such as reading the newspaper or watching television: Not at all - 8. Moving or speaking so slowly that other people could have noticed. Or the opposite - being so fidgety or restless that you have been moving around a lot more than usual: Not at all 9. Thoughts that you would be better off , or of hurting yourself in some way: Not at all How difficult have these problems made it for you to do your work, take care of things at home, or get along with other people?: Not difficult at all Total Score: 3 NADYA-Q SV Test - Statements CAD is a disease of the arteries in the heart: I Don't Know Examples of risk factors for heart disease: True Angina is chest pain or discomfort: I Don't Know The benefits of resistance training include: I Don't Know Eating more meat and dairy products: False Anti-platelet medications such as aspirin are important: I Don't Know The only effective way to manage stress: False An exercise warm-up slowly increases heart rate: I Don't Know Prepared, processed foods usually have high sodium: True Depression is common after a heart attack: True The statin medications lower cholesterol: True To control blood pressure, lower the amount of sodium: I Don't Know If someone gets chest discomfort during walking: False Transfats are partially hydrogenated vegetable oils: I Don't Know Sleep apnea that is not treated increases the risk: I Don't Know To control cholesterol, one should become a vegetarian: False Someone knows if he/she is exercising at the right level: I Don't Know Diabetes cannot be prevented with exercise & health eating: False Stress is a large risk for heart attack: I Don't Know A diet that can help lower blood pressure is rich in: I Don't Know - Total Score Total Correct Responses: 9 Self-Efficacy Initial Assessment We would like to know how confident you are in doing certain activities. Please select your confidence level for:: Select your confidence level for the following using the scale 1-10 where 1 is not at all confident and 10 is totally confident. Your score is the average of all 6 responses. Fatigue: How confident are you that you can keep the fatigue caused by your disease from interfering with the things you want to do? Select Number: 10 Physical Discomfort or Pain: How confident are you that you can keep the physical discomfort or pain of your disease from interfering with the things you want to do? Select Number: 10 Emotional Distress: How confident are you that you can keep the emotional distress caused by your disease from interfering with the things you want to do? Select Number: 10 Other Symptoms or Health Problems: How confident are you that you can keep other symptoms or health problems from interfering with the things you want to do? Select Number: 10 Different Tasks and Activities: How confident are you that you can do the different tasks and activities needed to manage your health condition so as to reduce your need to see a doctor? Select Number: 10 Medication: How confident are you that you can do things other than just taking medication to reduce how much your illness affects your everyday life? Select Number: 10 Total Score:: 10 Nutrition Survey - Nutrition Survey Initial Have you lost >10 lbs over the past 2 months without trying?: No Are you following a special diet at home for diabetes, low fat, or low salt?: No Are you interested in meeting with a dietitian for help understanding your diet?: Yes - Would like to have his attend also when meeting with nutritional services. Do you eat less than 3 meals a day?: Yes Do you eat fatty meats (deutsch, sausage, ribs, etc), fried foods, desserts, large amounts of salad dressings, margarine, butter, or cheese most days?: No Do you have food allergies? [Enter types in comment field]: No Do you eat in restaurants more than 3 times a week?: No Do you season food with salt, seasoning salt, or garlic salt?: Yes Do you used canned, boxed, frozen meals, or soups, seasoning packets?: No Total Score:: 3
[2022-08-13 08:36] VITALS: BP 117/81; PULSE 67; RESP 12; TEMP 36.4; O2SAT 96; BMI 27.3
[2022-08-13 09:12] VITALS: BP 117/81; BMI 28.1
== END 2022-08-13 23:59 | disposition home or self-care (01) ==
LOC: CR 07:48
PROVIDERS: Visit Provider Internal Medicine Cardiovascular Disease
DX: Z71.3 Dietary counseling and surveillance (principal); I42.9 Cardiomyopathy, unspecified; E78.5 Hyperlipidemia, unspecified; E87.1 Hypo-osmolality and hyponatremia; I25.10 Atherosclerotic heart disease of native coronary artery without angina pectoris

== ENCOUNTER 2022-08-27 07:16 | Outpatient (CLI) | payer MEDICARE, OTHER, SELFPAY ==
[2022-08-27 08:35] LABS: ALB/GLOB Ratio 1.1 RATIO (0.9-2.4); AST(SGOT) 15 U/L (15-37); Alanine Aminotransfer ALT/SGPT 24 U/L (16-61); Albumin, Serum 3.6 g/dL (3.2-5.0); Alkaline Phosphatase 53 U/L (45-117); Anion Gap 6 (5-15); BUN 15 mg/dL (7-18); BUN/Creat Ratio 13.4 RATIO (10-20); Calcium,Total 9.5 mg/dL (8.5-10.1); Chloride 103 mmol/L (98-107); Creatinine, Serum 1.12 mg/dL (0.70-1.30); EST Glomerular Filtration Rate 69 mL/min (>60); Est Glom Filt Rate - Afr Amer 84 mL/min (>60); Globulin 3.4 g/dL (2.2-4.2); Glucose 154 mg/dL (74-106); Potassium 4.1 mmol/L (3.5-5.1); Sodium Level 138 mmol/L (136-145)
== END 2022-08-27 23:59 | disposition home or self-care (01) ==
LOC: LAB 07:18
PROVIDERS: Referring Provider Internal Medicine Cardiovascular Disease; Visit Provider Internal Medicine Cardiovascular Disease
DX: I25.10 Atherosclerotic heart disease of native coronary artery without angina pectoris (principal)
CPT/HCPCS: 36415; 80053

== ENCOUNTER 2022-08-27 08:00 | Outpatient (RCR) | payer MEDICARE, OTHER, SELFPAY | END 2022-08-27 23:59 | LOC: CR 08:00 | PROVIDERS: Referring Provider Internal Medicine Cardiovascular Disease; Visit Provider Internal Medicine Cardiovascular Disease | DX: I21.3 ST elevation (STEMI) myocardial infarction of unspecified site (principal); I25.10 Atherosclerotic heart disease of native coronary artery without angina pectoris | CPT/HCPCS: 93798 ==

== ENCOUNTER 2022-09-24 08:00 | Outpatient (RCR) | payer MEDICARE, OTHER, SELFPAY | END 2022-09-27 23:59 | LOC: CR 08:00 | PROVIDERS: PCP Internal Medicine; Referring Provider Internal Medicine Cardiovascular Disease; Visit Provider Internal Medicine Cardiovascular Disease | DX: I25.2 Old myocardial infarction (principal); I25.10 Atherosclerotic heart disease of native coronary artery without angina pectoris | CPT/HCPCS: 93798 ==

== ENCOUNTER 2022-10-27 08:00 | Outpatient (RCR) | payer MEDICARE, OTHER, SELFPAY ==
--- NOTE | 2022-10-13 08:04 | CR.ITP_ITS ---
Diagnosis Exercise - 60-day Assessment - Visit Date of Eval: 10/13/22 Session #:: 20 - Physician Prescribed Exercise Modalities: Treadmill, Rower, Airdyne Frequency: 3x/week for 12 weeks [36 sessions] Intensity: 60-80% of age predicted maximum heart rate reserve Current METSs:: 6 Target Heart Rate:: 99-129 Current RPE:: 12-13 Maximum Excercise HR:: 144 Resting Blood Pressure: 110/64 Maximum Exercise Blood Pressure: 160/80 EKG Type: SR to ST with twave inversion - Outcomes & Goals Goals:: Verbalizes understanding of THR, RPE & goal METS by session 6, Documents in home exercise log/reports 30 min aerobic 5 day/wk by DC, Demonstrates accurate pulse taking by DC, Other additional outcome/goals: see below - Intervention & Plan Exercise Program Goals: Instruct on personal THR & RPE, Instruct on MET level & personal MET goal, Show patient to take own pulse /validate performance until accurate, Instruct on home exercise, Other additional plan/int - 30-day Reassessments 30 day Reassessments:: Progressing - THR explained - Physical Activity Home Exercise Physical Activity - Home Exercise: Safe Exercise, Warm-up, Self-monitoring, Cool-Down, Home Exercise > 30 min Daily, Sitting Time <3 hours/daily - Outcomes & Goals Outcomes/Goals: Demonstrates correct Warm-up/exercise Cool-Down (S3) if = 2.5 METs, Verbalizes symptoms of exercise intolerance by Session 3 (S3), Demonstrate safe equipment use (S3) & follows exercise prescrition (6), Other: See below - Intervention & Plan Plan/Intervention: Instruct warm-up & cool-down if exercising at > 2 METs, Instruct on symptoms of exercise intolerance & actions to take, Instruct & monitor on saf, Assess intial functional capacity & safety risk, Other See below - 30-day Reassessments 30 day Reassessments:: Progressing - cool down encouraged Nutrition - Initial Assessment Nutrition - 30-Day Assessment Nutrition - 60-Day Assessment - Program Goals Nutrition Program Goals: LDL <100 optimal. 100 - 129 Near optimal. 130 - 159 Borderline High. 160 - 189 High. Total Cholesterol <200 desirable. 200 - 239 Borderline High. >/= 240 High. HDL < 40 Low >/=60 High. Triglycerides <150 desirable. <199 optimal. VlDL 5 - 40. HgbA1C <7%. BMI <25 Patient has diagnosis of Hyperlipidemia (ICD E78)?: Yes - Visit Date of Assessment:: 10/13/22 Session #:: 20 - Cholesterol/Lipids (Other Core Measures) Determine presence & major risk factors that modify LDL goal: Hypertension or hypertensive medication, Low HDL cholesterol <40 mg/dL*, Family history of premature CHD in Male < 55 years: female <65 yearsFa, Age men > 45 years; women >/= 55 years Outcomes/Goals: Pt IDs own risk factors & lifestyle modifications by Session 10, Verbalizes symptoms of angina & response by session 3., Pt independently manages, Other Additional Outcomes/Goals: Intervention/Plan: Advocate for lipid panel cholesterol medication if applicable, Instruct on personal lipid levels & lipid goals/NCEP guidelines, Instruct on cholesterol, Other additional plan/int 30-day Reassessments:: Progressing - risk factors explained - Diabetes (Other Core Measures) Diabetes Type: Not Applicable - Weight Mgt (Other Care) Height: 5 ft 7 in Weight:: 78.018 kg BMI: 26.9 Diagnosis Overweight/Obesity BMI> 30% ICD-10 E66: No Diagnosis High BMI/Morbid Obesity BMI> 35% ICD-10 Z68: No Outcomes/Goals: Pt sets, maintains & shows weight loss goal & trend during rehab, Other additional outcomes/goals Intervention/Plan: Instruct on ideal BMI & set weight loss goal w/patient, Assist pt to ID & incorporate diet changes for weight loss by S9, Refer to Structured Weight Loss program as appropriate, Encourage goal of using 250- 300dcal per session for weight loss, Other additional plan/interventions 30 day Reassessments:: Met - Healthy Eating Habits Will attend diet classes:: Yes Outcomes/Goals:: Consume diet rich in vegs,fruits,whole grain/high fiber,fish,lean meat, Limit sat/trans fats,cholesterol & added salts & sugars, Other additional outcome/goals: Intervention/Plan:: Assess current eating habits, Other Additional plan/interventions 30-day Reassessments:: Not Met - Education Gave educational materials for:: Signs & symptoms of hypoglycemia, Signs & symptoms of hyperglycemia, Relate diabetes to coronary artery disease, Healthy eating Nutrition - 90-Day Assessment Nutrition - Final Assessment Core - Initial Assessment Core - 30-Day Assessment Core - 60-Day Assessment - Visit Date of Eval: 10/13/22 Session #:: 20 - Medication Compliance Preventative Medication(s):: Aspirin, Clopidogrel/P2Y12 inhibit, Statin/lipid, Beta bong H/O mental health issues: depression, anxiety, or addiction?: No Doesn?t believe in the benefits of treatment?: No Believes medications are unnecessary or harmful?: No Has a concern about medication side effects?: No Expresses concern over the cost of medications?: No Outcomes/Goals: Verbalizes medications,desired effect & common side effects @ DC, Pt self-reports following medication regimen, Keeps card in wallet w/medications listed by DC, Other additional outcome/goals: Interventions/plans: Instruct on medication effects & side effects, Review medication list w/patient every two weeks, Instruct importance of taking meds as ordered & assist problem solving, Other additional 30-day Reassessments:: Progressing - encouraged to take meds - Tobacco Use Tobacco Use: Non-smoker Do you use smokeless tobacco?: No - Hypertension Hypertension Diagnosis:: Hypertension ICD-10 I10 Resting Blood Pressure:: 110/62 [place] [employer] Hypertension Guidelines: [place] [employer] Hypertension Guidelines. Normal BP Less than 120/80. Elevated BP 120/80. Hypertension Stage 1: BP 130-139/80-89. Hypertesnion Stage 2: BP 140 or higher/90 or higher. Hypertension Crisis: BP higher than 180/120 Peak Exercise Blood Pressure:: 160/80 Outcomes/Goals: Able to verbalize/achieve optimal blood pressure <130/80, Incorporates diet changes & exercise for blood pressure control by DC, Other add itional outcomes/goals Interventions/plan: Instruct on optimal blood pressure, hypertension & medications, Instruct on effects of sodium, alcohol, stress, exercise &hypertension, Other additional plan/interventions 30 day Reassessments:: Progressing - encouraged to take meds - Tobacco Cessation Referral Smoking Cessation Referral:: No Individual Education/Counseling:: No Education Schedule Given:: Yes Core - 90 Day Assessment Core - Final Assessment Psychosocial - Initial Assess Psychosocial - 30-Day Assess Psychosocial - 60-Day Assess - VIsit Date of Eval: 10/13/22 Session #:: 20 History of previous Mental disease:: No - Outcomes/Goals: See list Psychosocial Outcomes/Goals:: ID's personal stressors & 2 strategies to manage stress by discharge, Other Additional outcome/goals: - Intervention/Plan: See List Interventions/Plan:: Assess stressors,coping strategies & signs of derpression on admission, Instruct/assist pt to develop coping & personal stress Mgt strategies, Refer to Behavioral Health if appropriate, Refer to Physician if appropriate, Instruct patient to recognize signs & symptoms of depression, Instruct patient to recog, Other additional plan/intervention Psychosocial - 90-Day Assess Psychosocial - Final Assessmen Patient Health Questionnaire 60-Day Re-eval Assessment 1. Little interest or pleasure in doing things: Not at all 2. Feeling down, depressed, or hopeless: Not at all 3. Trouble falling or staying asleep, or sleeping too much: Several days 4. Feeling tired or having little energy: Several days 5. Poor appetite or overeating: Several days 6. Feeling bad about yourself -- or that you are a failure or have let yourself or your family down: Not at all 7. Trouble concentrating on things, such as reading the newspaper or watching television: Not at all 8. Moving or speaking so slowly that other people could have noticed. Or the opposite - being so fidgety or restless that you have been moving around a lot more than usual: Not at all 9. Thoughts that you would be better off , or of hurting yourself in some way: Not at all How difficult have these problems made it for you to do your work, take care of things at home, or get along with other people?: Not difficult at all Total Score: 3 Self-Efficacy 60-Day Re-eval Assessment We would like to know how confident you are in doing certain activities. Please select your confidence level for:: Select your confidence level for the following using the scale 1-10 where 1 is not at all confident and 10 is totally confident. Your score is the average of all 6 responses. Fatigue: How confident are you that you can keep the fatigue caused by your disease from interfering with the things you want to do? Select Number: 10 Physical Discomfort or Pain: How confident are you that you can keep the physical discomfort or pain of your disease from interfering with the things you want to do? Select Number: 10 Emotional Distress: How confident are you that you can keep the emotional distress caused by your disease from interfering with the things you want to do? Select Number: 10 Other Symptoms or Health Problems: How confident are you that you can keep other symptoms or health problems from interfering with the things you want to do? Select Number: 10 Different Tasks and Activities: How confident are you that you can do the different tasks and activities needed to manage your health condition so as to reduce your need to see a doctor? Select Number: 10 Medication: How confident are you that you can do things other than just taking medication to reduce how much your illness affects your everyday life? Select Number: 10 Total Score:: 10 Nutrition Survey
[2022-10-13 08:14] VITALS: BP 110/62; BP 110/64; BP 160/80; BMI 26.9
== END 2022-10-28 23:59 ==
LOC: CR 08:00
PROVIDERS: PCP Internal Medicine; Referring Provider Internal Medicine Cardiovascular Disease; Visit Provider Internal Medicine Cardiovascular Disease
DX: I21.3 ST elevation (STEMI) myocardial infarction of unspecified site (principal); I25.10 Atherosclerotic heart disease of native coronary artery without angina pectoris
CPT/HCPCS: 93798

== ENCOUNTER → 2022-10-31 | Outpatient (CLI) | payer MEDICARE, OTHER, SELFPAY ==
[2022-10-13 08:14] VITALS: BMI 26.9
[2022-10-31 07:51] LABS: AST(SGOT) 18 U/L (15-37); Alanine Aminotransfer ALT/SGPT 25 U/L (16-61); CPK Total, Creatine Kinase 71 U/L (39-308); Cholesterol 175 mg/dL (200); High Density Lipoprotein 70 mg/dL; Triglycerides 97 mg/dL; Very Low Density Lipoprotein 19 mg/dL (5-40)
== END | disposition home or self-care (01) ==
LOC: LAB 05:39
PROVIDERS: PCP Internal Medicine; Referring Provider Internal Medicine Cardiovascular Disease; Visit Provider Internal Medicine Cardiovascular Disease
DX: E78.5 Hyperlipidemia, unspecified (principal)
CPT/HCPCS: 36415; 80061; 82550; 84450; 84460; 93798

== ENCOUNTER 2022-11-19 08:00 | Outpatient (RCR) | payer MEDICARE, OTHER, SELFPAY ==
[2022-10-13 08:14] VITALS: BMI 26.9
[2022-10-29 00:34] VITALS: BP 110/62; BP 110/64; BP 160/80
--- NOTE | 2022-11-12 15:30 | CR.ITP_ITS ---
Diagnosis Exercise - 90-day Assessment - Visit Date of Eval: 11/12/22 Session #:: 33 - Physician Prescribed Exercise Modalities: Treadmill, Rower, Airdyne, NuStep, SciFit, Lateral [place] Frequency: 3x/week for 12 weeks [36 sessions] Intensity: 60-80% of age predicted maximum heart rate reserve Current METSs:: 7 Target Heart Rate:: 99-129 Current RPE:: 12-12.5 Maximum Excercise HR:: 141 Resting Blood Pressure: 120/58 Maximum Exercise Blood Pressure: 160/78 EKG Type: SB twave inversion to ST with rare PAC - Outcomes & Goals Goals:: Verbalizes understanding of THR, RPE & goal METS by session 6, Documents in home exercise log/reports 30 min aerobic 5 day/wk by DC, Demonstrates accurate pulse taking by DC, Other additional outcome/goals: see below - Intervention & Plan Exercise Program Goals: Instruct on personal THR & RPE, Instruct on MET level & personal MET goal, Show patient to take own pulse /validate performance until accurate, Instruct on home exercise, Other additional plan/int - 30-day Reassessments 30 day Reassessments:: Met - Physical Activity Home Exercise Physical Activity - Home Exercise: Safe Exercise, Warm-up, Self-monitoring, Cool-Down, Home Exercise > 30 min Daily, Sitting Time <3 hours/daily - Outcomes & Goals Outcomes/Goals: Demonstrates correct Warm-up/exercise Cool-Down (S3) if = 2.5 METs, Verbalizes symptoms of exercise intolerance by Session 3 (S3), Demonstrate safe equipment use (S3) & follows exercise prescrition (6), Other: See below - Intervention & Plan Plan/Intervention: Instruct warm-up & cool-down if exercising at > 2 METs, Instruct on symptoms of exercise intolerance & actions to take, Instruct & monitor on saf, Assess intial functional capacity & safety risk, Other See below - 30-day Reassessments 30 day Reassessments:: Met Nutrition - Initial Assessment Nutrition - 30-Day Assessment Nutrition - 60-Day Assessment Nutrition - 90-Day Assessment - Program Goals Nutrition Program Goals: LDL <100 optimal. 100 - 129 Near optimal. 130 - 159 Borderline High. 160 - 189 High. Total Cholesterol <200 desirable. 200 - 239 Borderline High. >/= 240 High. HDL < 40 Low >/=60 High. Triglycerides <150 desirable. <199 optimal. VlDL 5 - 40. HgbA1C <7%. BMI <25 Patient has diagnosis of Hyperlipidemia (ICD E78)?: Yes - Visit Date of Assessment:: 11/12/22 Session #:: 33 - Cholesterol/Lipids (Other Core Measures) Determine presence & major risk factors that modify LDL goal: Hypertension or hypertensive medication, Low HDL cholesterol <40 mg/dL*, Family history of premature CHD in Male < 55 years: female <65 yearsFa, Age men > 45 years; women >/= 55 years Outcomes/Goals: Pt IDs own risk factors & lifestyle modifications by Session 10, Verbalizes symptoms of angina & response by session 3., Pt independently manages, Other Additional Outcomes/Goals: Intervention/Plan: Advocate for lipid panel cholesterol medication if applicable, Instruct on personal lipid levels & lipid goals/NCEP guidelines, Instruct on cholesterol, Other additional plan/int 30-day Reassessments:: Met - Diabetes (Other Core Measures) Diabetes Type: Not Applicable - Weight Mgt (Other Care) Height: 5 ft 7 in Weight:: 77.337 kg BMI: 26.6 Diagnosis Overweight/Obesity BMI> 30% ICD-10 E66: No Diagnosis High BMI/Morbid Obesity BMI> 35% ICD-10 Z68: No Outcomes/Goals: Pt sets, maintains & shows weight loss goal & trend during rehab, Other additional outcomes/goals Intervention/Plan: Instruct on ideal BMI & set weight loss goal w/patient, Assist pt to ID & incorporate diet changes for weight loss by S9, Refer to S tructured Weight Loss program as appropriate, Encourage goal of using 250- 300dcal per session for weight loss, Other additional plan/interventions 30 day Reassessments:: Met - Healthy Eating Habits Will attend diet classes:: Yes Outcomes/Goals:: Consume diet rich in vegs,fruits,whole grain/high fiber,fish,lean meat, Limit sat/trans fats,cholesterol & added salts & sugars, Other additional outcome/goals: Intervention/Plan:: Assess current eating habits, Other Additional plan/interve ntions 30-day Reassessments:: Met - Education Gave educational materials for:: Signs & symptoms of hypoglycemia, Signs & symptoms of hyperglycemia, Relate diabetes to coronary artery disease Nutrition - Final Assessment Core - Initial Assessment Core - 30-Day Assessment Core - 60-Day Assessment Core - 90 Day Assessment - Visit Date of Eval: 11/12/22 Session #:: 33 - Medication Compliance Preventative Medication(s):: Aspirin, Clopidogrel/P2Y12 inhibit, Statin/lipid, Beta bong H/O mental health issues: depression, anxiety, or addiction?: No Doesn?t believe in the benefits of treatment?: No Believes medications are unnecessary or harmful?: No Has a concern about medication side effects?: No Expresses concern over the cost of medications?: No Outcomes/Goals: Verbalizes medications,desired effect & common side effects @ DC, Pt self-reports following medication regimen, Keeps card in wallet w/medications listed by DC, Other additional outcome/goals: Interventions/plans: Instruct on medication effects & side effects, Review medication list w/patient every two weeks, Instruct importance of taking meds as ordered & assist problem solving, Other additional 30-day Reassessments:: Met - Tobacco Use Tobacco Use: Non-smoker Do you use smokeless tobacco?: No 30-day Reassessments:: Met - Hypertension Hypertension Diagnosis:: Hypertension ICD-10 I10 Resting Blood Pressure:: 120/58 [place] [employer] Hypertension Guidelines: [place] [employer] Hypertension Guidelines. Normal BP Less than 120/80. Elevated BP 120/80. Hypertension Stage 1: BP 130-139/80-89. Hypertesnion Stage 2: BP 140 or higher/90 or higher. Hypertension Crisis: BP higher than 180/120 Peak Exercise Blood Pressure:: 160/78 Outcomes/Goals: Able to verbalize/achieve optimal blood pressure <130/80, Incorporates diet changes & exercise for blood pressure control by DC, Other additional outcomes/goals Interventions/plan: Instruct on optimal blood pressure, hypertension & medications, Instruct on effects of sodium, alcohol, stress, exercise &hype rtension, Other additional plan/interventions 30 day Reassessments:: Met - Tobacco Cessation Referral Smoking Cessation Referral:: No Individual Education/Counseling:: No Education Schedule Given:: Yes Core - Final Assessment Psychosocial - Initial Assess Psychosocial - 30-Day Assess Psychosocial - 60-Day Assess Psychosocial - 90-Day Assess - VIsit Date of Eval: 11/12/22 Session #:: 33 History of previous Mental disease:: No - 30-day Reassessments: 30 day Reassessments:: Met Psychosocial - Final Assessmen Patient Health Questionnaire 90-Day Re-eval Assessment 1. Little interest or pleasure in doing things: Not at all 2. Feeling down, depressed, or hopeless: Not at all 3. Trouble falling or staying asleep, or sleeping too much: Several days 4. Feeling tired or having little energy: Several days 5. Poor appetite or overeating: Several days 6. Feeling bad about yourself -- or that you are a failure or have let yourself or your family down: Not at all 7. Trouble concentrating on things, such as reading the newspaper or watching television: Not at all 8. Moving or speaking so slowly that other people could have noticed. Or the opposite - being so fidgety or restless that you have been moving around a lot more than usual: Not at all 9. Thoughts that you would be better off , or of hurting yourself in some way: Not at all How difficult have these problems made it for you to do your work, take care of things at home, or get along with other people?: Not difficult at all Total Score: 3 Self-Efficacy 90-Day Re-eval Assessment We would like to know how confident you are in doing certain activities. Please select your confidence level for:: Select your confidence level for the following using the scale 1-10 where 1 is not at all confident and 10 is totally confident. Your score is the average of all 6 responses. Fatigue: How confident are you that you can keep the fatigue caused by your disease from interfering with the things you want to do? Select Number: 10 Physical Discomfort or Pain: How confident are you that you can keep the physical discomfort or pain of your disease from interfering with the things you want to do? Select Number: 10 Emotional Distress: How confident are you that you can keep the emotional distress caused by your disease from interfering with the things you want to do? Select Number: 10 Other Symptoms or Health Problems: How confident are you that you can keep other symptoms or health problems from interfering with the things you want to do? Select Number: 10 Different Tasks and Activities: How confident are you that you can do the different tasks and activities needed to manage your health condition so as to reduce your need to see a doctor? Select Number: 10 Medication: How confident are you that you can do things other than just taking medication to reduce how much your illness affects your everyday life? Select Number: 10 Total Score:: 10 Nutrition Survey
[2022-11-12 15:44] VITALS: BP 120/58; BP 160/78; BMI 26.6
== END 2022-11-25 23:59 ==
LOC: CR 08:00
PROVIDERS: PCP Internal Medicine; Referring Provider Internal Medicine Cardiovascular Disease; Visit Provider Internal Medicine Cardiovascular Disease
DX: I21.3 ST elevation (STEMI) myocardial infarction of unspecified site (principal); I25.10 Atherosclerotic heart disease of native coronary artery without angina pectoris
CPT/HCPCS: 93798

== ENCOUNTER → 2023-01-05 | Outpatient (CLI) | payer MEDICARE, OTHER, SELFPAY ==
[2022-11-12 15:44] VITALS: BMI 26.6
[2023-01-05 12:07] LABS: Absolute Lymphocyte Count 1.44 X10^3/uL (0.83-4.51); Absolute Neutrophil Count 4.2 X10^3/uL (2.0-7.7); Basophil# 0.02 X10^3/uL; Basophil% 0.3 % (0-1); Eosinophils% 4.6 % (0-5); Hematocrit 47.5 % (40-54); Hemoglobin 14.3 g/dL (13.0-16.5); Lymphocyte # 1.44 X10^3/ul (0.83-4.51); Lymphocyte % 21.9 % (19-41); Mean Corp Hgb Conc 30.1 g/dL (32-36); Mean Corpuscular Hgb 26.1 pg (27.0-32.0); Mean Corpuscular Volume 86.7 fL (80-94); Mean Platelet Vol. 10.5 fl (6.2-12.0); Monocyte# 0.57 X10^3/uL; Monocyte% 8.7 % (0-10); NRBC Flagged by Analyzer 0 % (0-5); Neutrophil # 4.24 X10^3/uL (2.7-7.7); Neutrophil % 64.3 % (47-70); Platelet Count 270 K/mm3 (150-450); RBC Distribution Width CV 14.9 % (11.6-14.6); RBC Distribution Width SD 47.2 fl (35.1-43.9); Red Blood Count 5.48 M/mm3 (4.6-6.2); White Blood Count 6.6 K/mm3 (4.4-11.0)
[2023-01-05 12:34] LABS: Anion Gap 3 (5-15); BUN 17 mg/dL (7-18); BUN/Creat Ratio 18.2 RATIO (10-20); Calcium,Total 9.8 mg/dL (8.5-10.1); Chloride 104 mmol/L (98-107); Creatinine, Serum 0.94 mg/dL (0.70-1.30); EST Glomerular Filtration Rate 85 mL/min (>60); Est Glom Filt Rate - Afr Amer 103 mL/min (>60); Glucose 102 mg/dL (74-106); Potassium 4.9 mmol/L (3.5-5.1); Sodium Level 136 mmol/L (136-145)
== END | disposition home or self-care (01) ==
LOC: BIMLAB 08:27
PROVIDERS: PCP Internal Medicine; Referring Provider Internal Medicine; Visit Provider Internal Medicine
DX: E11.9 Type 2 diabetes mellitus without complications (principal)
CPT/HCPCS: 36415; 80048; 85025

== ENCOUNTER → 2023-11-02 | Outpatient (CLI) | payer MEDICARE, OTHER, SELFPAY ==
[2022-11-12 15:44] VITALS: BMI 26.6
--- OUTSIDE RECORDS SUMMARY | 2023-11-02 06:00 | XMS RPT_ITS | CCD ---
Author Name Unknown Address [address] [place] [address] Organization [facility] Care Team Providers Care Information Technology Administrator Name Role Phone David Galen Bailey Unavailable Unavailable Galen Hernandez Unavailable Unavailable *SELF, REFERRED Unavailable Unavailable Encounters Encounter Date Encounter Type Care Provider Facility Start: 06-16-2017 Ambulatory Galen Hernandez Facilit [id number] Payers Date Payer Category Payer Policy ID Private Health Insurance [id number] Summary Purpose Family History No Family History Records Found Advance Directives No Advanced Directives Records Found Additional Source Comments (unrecognized sect ion and content) No Status Records Found INFORMATION SOURCE (unrecogn ized section and content) FOR RECORDS PERTAINING TO PATIENTS WHO ARE OR HAVE BEEN ENROLLED IN A CHEMICAL DEPENDENCY/SUBSTANCEABUSE PROGRAM, SOME INFORMATION MAY BE OMITTED. This clinical summary was aggregated from multiple sources. Caution should be exercised in using it in the provision of clinical care. This summary normalizes information from multiple sources, and as a consequence, information in this document may materially change the coding, format and clinical context of patient data. In addition, data may be omitted in some cases. CLINICAL DECISIONS SHOULD BE BASED ON THE PRIMARY CLINICAL RECORDS. [email or web address] provides no warranty or guarantee of the accuracy or completeness of information in this document.
[2023-11-02 08:02] LABS: Absolute Lymphocyte Count 1.75 X10^3/uL (0.83-4.51); Absolute Neutrophil Count 3.5 X10^3/uL (2.0-7.7); Basophil# 0.01 X10^3/uL; Basophil% 0.2 % (0-1); Eosinophil# 0.33 X10^3/uL; Eosinophils% 5.5 % (0-5); Hematocrit 48.7 % (40-54); Hemoglobin 14.7 g/dL (13.0-16.5); Lymphocyte # 1.75 X10^3/ul (0.83-4.51); Mean Corp Hgb Conc 30.2 g/dL (32-36); Mean Corpuscular Volume 86.2 fL (80-94); Mean Platelet Vol. 10.3 fl (6.2-12.0); Monocyte# 0.48 X10^3/uL; Monocyte% 7.9 % (0-10); NRBC Flagged by Analyzer 0 % (0-5); Neutrophil # 3.46 X10^3/uL (2.7-7.7); Neutrophil % 57.2 % (47-70); Platelet Count 271 K/mm3 (150-450); RBC Distribution Width CV 15.1 % (11.6-14.6); RBC Distribution Width SD 47.8 fl (35.1-43.9); Red Blood Count 5.65 M/mm3 (4.6-6.2)
[2023-11-02 08:26] LABS: ALB/GLOB Ratio 1.1 RATIO (0.9-2.4); AST(SGOT) 23 U/L (15-37); Alanine Aminotransfer ALT/SGPT 31 U/L (16-61); Albumin, Serum 3.7 g/dL (3.2-5.0); Alkaline Phosphatase 49 U/L (45-117); Anion Gap 3 (5-15); BUN 18 mg/dL (7-18); BUN/Creat Ratio 21.8 RATIO (10-20); Calcium,Total 9.1 mg/dL (8.5-10.1); Chloride 109 mmol/L (98-107); Cholesterol 199 mg/dL (200); Creatinine, Serum 0.82 mg/dL (0.70-1.30); EST Glomerular Filtration Rate 98 mL/min (>60); Est Glom Filt Rate - Afr Amer 119 mL/min (>60); Globulin 3.3 g/dL (2.2-4.2); Glucose 101 mg/dL (74-106); High Density Lipoprotein 82 mg/dL; Potassium 3.8 mmol/L (3.5-5.1); Sodium Level 140 mmol/L (136-145); Triglycerides 77 mg/dL; Very Low Density Lipoprotein 15 mg/dL (5-40)
== END | disposition home or self-care (01) ==
LOC: LAB 05:57
PROVIDERS: PCP Internal Medicine; Referring Provider Internal Medicine Cardiovascular Disease; Visit Provider Internal Medicine Cardiovascular Disease
DX: Z00.00 Encounter for general adult medical examination without abnormal findings (principal); I42.9 Cardiomyopathy, unspecified; E11.9 Type 2 diabetes mellitus without complications; E78.00 Pure hypercholesterolemia, unspecified; R00.1 Bradycardia, unspecified
CPT/HCPCS: 36415; 80053; 80061; 85025

== ENCOUNTER → 2024-05-17 | Outpatient (CLI) | payer MEDICARE, OTHER, SELFPAY ==
[2022-11-12 15:44] VITALS: BMI 26.6
[2024-05-17 11:22] LABS: ALB/GLOB Ratio 1.1 RATIO (0.9-2.4); AST(SGOT) 23 U/L (15-37); Alanine Aminotransfer ALT/SGPT 29 U/L (16-61); Albumin, Serum 3.6 g/dL (3.2-5.0); Alkaline Phosphatase 43 U/L (45-117); Anion Gap 5 (5-15); BUN 16 mg/dL (7-18); BUN/Creat Ratio 16.2 RATIO (10-20); Calcium,Total 9.2 mg/dL (8.5-10.1); Chloride 105 mmol/L (98-107); Cholesterol 216 mg/dL (200); Creatinine, Serum 0.99 mg/dL (0.70-1.30); EST Glomerular Filtration Rate 80 mL/min (>60); Est Glom Filt Rate - Afr Amer 96 mL/min (>60); Globulin 3.3 g/dL (2.2-4.2); Glucose 114 mg/dL (74-106); High Density Lipoprotein 81 mg/dL; Protein, Total 6.9 g/dL (6.4-8.2); Sodium Level 137 mmol/L (136-145); Triglycerides 109 mg/dL; Very Low Density Lipoprotein 22 mg/dL (5-40)
== END | disposition home or self-care (01) ==
LOC: LAB 09:31
PROVIDERS: PCP Internal Medicine; Referring Provider Internal Medicine Cardiovascular Disease; Visit Provider Internal Medicine Cardiovascular Disease
DX: Z00.00 Encounter for general adult medical examination without abnormal findings (principal); I42.9 Cardiomyopathy, unspecified; E78.5 Hyperlipidemia, unspecified; I25.10 Atherosclerotic heart disease of native coronary artery without angina pectoris; R00.1 Bradycardia, unspecified
CPT/HCPCS: 36415; 80053; 80061

== ENCOUNTER → 2024-11-22 | Outpatient (CLI) | payer MEDICARE, OTHER, SELFPAY ==
[2022-11-12 15:44] VITALS: BMI 26.6
[2024-11-22 19:08] LABS: ALB/GLOB Ratio 1.7 RATIO (0.9-2.4); AST(SGOT) 33 U/L (<=37); Alanine Aminotransfer ALT/SGPT 23 U/L (<=46); Albumin, Serum 4.4 g/dL (3.4-4.8); Alkaline Phosphatase 45 U/L (40-129); Anion Gap 12 (5-15); BUN 19 mg/dL (4-19); BUN/Creat Ratio 21.1 RATIO (10-20); Bilirubin, Direct 0.13 mg/dL (0.00-0.30); Calcium 9.4 mg/dL (7.6-11.0); Chloride 102 mmol/L (96-108); Creatinine, Serum 0.9 mg/dL (0.8-1.3); EST Glomerular Filtration Rate 90 (>60); Globulin 2.5 g/dL (2.2-4.2); Glucose 101 mg/dL (70-99); Potassium 4.5 mmol/L (3.3-5.1); Protein, Total 6.9 g/dL (5.9-8.4); Sodium Level 138 mmol/L (133-145); Total Bilirubin 0.28 mg/dL (0.00-1.30)
[2024-11-23 02:01] LABS: Cholesterol 187 mg/dL (<=200); High Density Lipoprotein 74 mg/dL; Triglycerides 56 mg/dL; Very Low Density Lipoprotein 11 mg/dL (5-40)
== END | disposition home or self-care (01) ==
LOC: LAB 09:41
PROVIDERS: PCP Internal Medicine; Referring Provider Internal Medicine Cardiovascular Disease; Visit Provider Internal Medicine Cardiovascular Disease
DX: E78.5 Hyperlipidemia, unspecified (principal); E11.9 Type 2 diabetes mellitus without complications
CPT/HCPCS: 36415; 80053; 80061; 80076; 82248

== ENCOUNTER → 2025-05-22 | Outpatient (CLI) | payer MEDICARE, OTHER, SELFPAY ==
[2022-11-12 15:44] VITALS: BMI 26.6
[2025-05-22 10:04] LABS: Hematocrit 46.5 % (40-54); Hemoglobin 14.6 g/dL (13.0-16.5); Immature Granulocytes Count 0.010 X10^3/uL (0.0-0.0); Mean Corp Hgb Conc 31.4 g/dL (32-36); Mean Corpuscular Volume 86.3 fL (80-94); Mean Platelet Vol. 9.9 fl (6.2-12.0); NRBC Flagged by Analyzer 0 % (0-5); Platelet Count 227 K/mm3 (150-450); RBC Distribution Width CV 14.9 % (11.6-14.6); RBC Distribution Width SD 46.8 fl (35.1-43.9); Red Blood Count 5.39 M/mm3 (4.6-6.2); White Blood Count 5.7 K/mm3 (4.4-11.0)
[2025-05-22 10:55] LABS: AST(SGOT) 22 U/L (<=37); Alanine Aminotransfer ALT/SGPT 22 U/L (<=46); Albumin, Serum 4.2 g/dL (3.4-4.8); Alkaline Phosphatase 44 U/L (40-129); Bilirubin, Direct 0.15 mg/dL (0.00-0.30); Cholesterol 202 mg/dL (<=200); Globulin 2.2 g/dL (2.2-4.2); Low Density Lipoprotein Calc. 107 mg/dL; Triglycerides 97 mg/dL; Very Low Density Lipoprotein 19 mg/dL (5-40); cholesterol:hdl ratio screen 2.68
[2025-05-22 10:57] LABS: Anion Gap 12 (5-15); BUN 17 mg/dL (4-19); BUN/Creat Ratio 19.9 RATIO (10-20); Calcium,Total 9.1 mg/dL (7.6-11.0); Carbon Dioxide 24.5 mmol/L (21.0-32.0); Chloride 103 mmol/L (98-108); Glucose 110 mg/dL (70-99); Potassium 4.1 mmol/L (3.3-5.1)
== END | disposition home or self-care (01) ==
LOC: LAB 09:05
PROVIDERS: Physician Assistant Medical; PCP Internal Medicine; Referring Provider Nurse Practitioner Family; Visit Provider Nurse Practitioner Family
DX: E11.9 Type 2 diabetes mellitus without complications (principal); I25.10 Atherosclerotic heart disease of native coronary artery without angina pectoris; E78.00 Pure hypercholesterolemia, unspecified
CPT/HCPCS: 80048; 80061; 80076; 83036; 85025